=== PATIENT | male | born 1960 | race Two or more races ===

== ENCOUNTER 2022-10-18 03:38 | Inpatient (IN) | payer OTHER, MEDICAID ==
[~2022-10-18] VITALS: Ht 175.3 cm; Wt 57.3 kg
[2022-10-18 04:40] LABS: Basophils # (auto) 0.1 10 ^3/uL (0-0.2); Basophils % (auto) 0.8 % (0.0-2.0); Eosinophils # (auto) 0.8 10 ^3/uL (0-0.8); Hematocrit 47.9 % (41.0-53.0); Hemoglobin 15.8 g/dL (13.5-17.5); Lymphocytes # (auto) 2.5 10 ^3/uL (0.4-5.4); Lymphocytes % (auto) 21.8 % (10.0-50.0); Mean Corpuscular Hemoglobin 28.6 pg (28.0-32.0); Mean Corpuscular Hgb Conc. 32.9 g/dL (32.0-36.0); Monocytes # (auto) 0.7 10 ^3/uL (0-1.3); Monocytes % (auto) 6.4 % (0.0-12.0); Neutrophils # (auto) 7.3 10 ^3/uL (1.6-8.6); Red Blood Cells 5.51 10^6/uL (4.5-5.90); Red Cell Distribution Width 13.6 % (11.8-14.3); White Blood Cell 11.4 10^3/uL (4.4-10.8)
[2022-10-18 04:55] LABS: INR 0.95 (0.9-1.15)
[2022-10-18 05:00] LABS: Albumin 3.2 g/dL (3.4-5.0); Calcium 9.2 mg/dL (8.5-10.1); Magnesium 2.3 mg/dL (1.6-2.6); Potassium 4.1 mmol/L (3.5-5.1)
[2022-10-18 05:02] LABS: BUN/Creatinine Ratio 7.5
[2022-10-18 05:05] LABS: Bilirubin, Total 0.9 mg/dL (0.2-1.0); Total Protein 6.6 g/dL (6.4-8.2)
[2022-10-18] MEDS ORDERED: cefTRIAXone 1GM/50ML D5W 50 ML IV ONE (07:00)
[2022-10-18] MEDS ORDERED: ONDANSETRON HCL 4 MG/2 ML VIAL IV ONE (11:00)
[2022-10-18] MEDS ORDERED: MORPHINE SULFATE INJ 2 MG/ml SYRG IV ONE (11:00)
[2022-10-18 11:23] LABS: Urine WBC None Seen /hpf (0 - 3)
[2022-10-18 11:32] LABS: Urine Bacteria NONE SEEN /hpf (None Seen); Urine Blood Negative /uL (Negative); Urine Specific Gravity 1.005 (1.001-1.035)
[2022-10-18] MEDS ORDERED: MORPHINE SULFATE INJ 2 MG/ml SYRG IV PRN ×2 (12:15)
[2022-10-18] MEDS ORDERED: AZITHROMYCIN 500MG/ 250ML 250 ML IV ONE (12:15)
[2022-10-18] MEDS ORDERED: ALBUTEROL SULF 2.5 MG/0.5ML(0.5%) NEB SOLN NEB PRN ×2 (12:15→13:15)
[2022-10-18] MEDS ORDERED: ACETAMINOPHEN 325 MG TAB PO PRN (12:15)
[2022-10-18] MEDS ORDERED: NITROGLYCERIN 0.4 MG SL TAB SL PRN (12:15)
[2022-10-18] MEDS ORDERED: ATOR40TA52 PO (13:04)
[2022-10-18] MEDS ORDERED: LISI2.5T47 PO (13:04)
[2022-10-18] MEDS: HYDROcodone-ACET 5/325MG TAB PO PRN (17:43)
[2022-10-18 20:38] VITALS: BP 112/72
[2022-10-18] MEDS: ATORVASTATIN 20 MG TAB PO SCH (22:44)
[2022-10-19] MEDS: HYDROcodone-ACET 5/325MG TAB PO PRN ×3 (03:07→17:10)
[2022-10-19 05:39] LABS: Basophils # (auto) 0.1 10 ^3/uL (0-0.2); Basophils % (auto) 0.9 % (0.0-2.0); Eosinophils # (auto) 0.7 10 ^3/uL (0-0.8); Eosinophils % (auto) 8.8 % (0.0-7.0); Hematocrit 46.3 % (41.0-53.0); Hemoglobin 15.3 g/dL (13.5-17.5); Mean Corpuscular Hemoglobin 28.5 pg (28.0-32.0); Mean Corpuscular Hgb Conc. 33.1 g/dL (32.0-36.0); Mean Corpuscular Volume 85.9 fL (80.0-100.0); Monocytes # (auto) 0.8 10 ^3/uL (0-1.3); Monocytes % (auto) 9.4 % (0.0-12.0); Neutrophils # (auto) 4.8 10 ^3/uL (1.6-8.6); Neutrophils % (auto) 56.9 % (37.0-80.0); Red Blood Cells 5.39 10^6/uL (4.5-5.90); Red Cell Distribution Width 13.5 % (11.8-14.3); White Blood Cell 8.4 10^3/uL (4.4-10.8)
[2022-10-19] MEDS: cefTRIAXone 1GM/50ML D5W 50 ML IV SCH (09:34)
[2022-10-19] MEDS: LISINOPRIL 5 MG TAB PO SCH (10:00)
[2022-10-19] MEDS: AZITHROMYCIN 500MG/ 250ML 250 ML IV SCH (10:43)
[2022-10-19 16:29] VITALS: BP 102/68
[2022-10-19 22:00] VITALS: BP 120/76
[2022-10-19] MEDS: ATORVASTATIN 20 MG TAB PO SCH (22:49)
[2022-10-20] VITALS (7 sets, daily range): BP systolic 94–112; BP diastolic 60–69
[2022-10-20] MEDS: HYDROcodone-ACET 5/325MG TAB PO PRN ×3 (02:10→20:17)
[2022-10-20] MEDS: cefTRIAXone 1GM/50ML D5W 50 ML IV SCH (09:37)
[2022-10-20] MEDS: LISINOPRIL 5 MG TAB PO SCH (10:00)
[2022-10-20] MEDS ORDERED: guaiFENesin-DM 100/10mg/5ml SYR PO ONE (10:30)
[2022-10-20] MEDS: AZITHROMYCIN 500MG/ 250ML 250 ML IV SCH (11:17)
[2022-10-20] MEDS ORDERED: methylPREDNISolone SOD SUCC 40 MG/ML VL IV ONE (11:45)
[2022-10-20] MEDS: guaiFENesin-DM 100/10mg/5ml SYR PO PRN (21:47)
[2022-10-20] MEDS: methylPREDNISolone SOD SUCC 40 MG/ML VL IV SCH (21:47)
[2022-10-20] MEDS: ATORVASTATIN 20 MG TAB PO SCH (21:48)
[2022-10-21 05:00] VITALS: BP 97/59
[2022-10-21 06:13] LABS: Basophils # (auto) 0 10 ^3/uL (0-0.2); Basophils % (auto) 0.1 % (0.0-2.0); Eosinophils # (auto) 0 10 ^3/uL (0-0.8); Hemoglobin 15.2 g/dL (13.5-17.5); Lymphocytes # (auto) 1.3 10 ^3/uL (0.4-5.4); Lymphocytes % (auto) 20.9 % (10.0-50.0); Mean Corpuscular Hemoglobin 29.2 pg (28.0-32.0); Mean Corpuscular Hgb Conc. 34.4 g/dL (32.0-36.0); Mean Corpuscular Volume 84.8 fL (80.0-100.0); Monocytes # (auto) 0.1 10 ^3/uL (0-1.3); Neutrophils # (auto) 4.9 10 ^3/uL (1.6-8.6); Nucleated Red Blood Cells % 0.1 %; Red Blood Cells 5.19 10^6/uL (4.5-5.90); Red Cell Distribution Width 13.4 % (11.8-14.3); White Blood Cell 6.3 10^3/uL (4.4-10.8)
[2022-10-21] MEDS: guaiFENesin-DM 100/10mg/5ml SYR PO PRN ×3 (06:18→21:08)
[2022-10-21] MEDS: HYDROcodone-ACET 5/325MG TAB PO PRN ×3 (06:18→21:08)
[2022-10-21 06:25] LABS: Calcium 9.2 mg/dL (8.5-10.1)
[2022-10-21 06:27] LABS: BUN/Creatinine Ratio 13.9
[2022-10-21 09:04] VITALS: BP 100/58
[2022-10-21] MEDS: cefTRIAXone 1GM/50ML D5W 50 ML IV SCH (09:11)
[2022-10-21] MEDS: LISINOPRIL 5 MG TAB PO SCH (10:00)
[2022-10-21] MEDS: AZITHROMYCIN 500MG/ 250ML 250 ML IV SCH (11:44)
[2022-10-21] MEDS: methylPREDNISolone SOD SUCC 40 MG/ML VL IV SCH ×2 (11:45→21:33)
[2022-10-21 12:44] VITALS: BP 100/63
[2022-10-21 17:00] VITALS: BP 97/63
[2022-10-21] MEDS: ATORVASTATIN 20 MG TAB PO SCH (21:33)
[2022-10-21 22:00] VITALS: BP 100/61
[2022-10-22 01:49] VITALS: BP 100/61
[2022-10-22 05:00] VITALS: BP 98/61
[2022-10-22 05:13] LABS: Basophils # (auto) 0.1 10 ^3/uL (0-0.2); Basophils % (auto) 0.5 % (0.0-2.0); Eosinophils # (auto) 0 10 ^3/uL (0-0.8); Hematocrit 43.4 % (41.0-53.0); Hemoglobin 14.6 g/dL (13.5-17.5); Lymphocytes # (auto) 1.5 10 ^3/uL (0.4-5.4); Mean Corpuscular Hemoglobin 28.7 pg (28.0-32.0); Mean Corpuscular Hgb Conc. 33.6 g/dL (32.0-36.0); Mean Corpuscular Volume 85.5 fL (80.0-100.0); Monocytes # (auto) 0.4 10 ^3/uL (0-1.3); Monocytes % (auto) 3.3 % (0.0-12.0); Neutrophils # (auto) 9.6 10 ^3/uL (1.6-8.6); Neutrophils % (auto) 83.2 % (37.0-80.0); Red Blood Cells 5.07 10^6/uL (4.5-5.90); Red Cell Distribution Width 13.2 % (11.8-14.3); White Blood Cell 11.6 10^3/uL (4.4-10.8)
[2022-10-22] MEDS: HYDROcodone-ACET 5/325MG TAB PO PRN ×3 (05:21→14:47)
[2022-10-22 05:26] LABS: Potassium 4.2 mmol/L (3.5-5.1)
[2022-10-22 05:27] LABS: Albumin 2.8 g/dL (3.4-5.0); BUN/Creatinine Ratio 13.3; Calcium 8.8 mg/dL (8.5-10.1)
[2022-10-22 05:30] LABS: Bilirubin, Total 0.4 mg/dL (0.2-1.0); Total Protein 6.7 g/dL (6.4-8.2)
[2022-10-22 08:49] VITALS: BP 105/71
[2022-10-22] MEDS: methylPREDNISolone SOD SUCC 40 MG/ML VL IV SCH (09:02)
[2022-10-22] MEDS: guaiFENesin-DM 100/10mg/5ml SYR PO PRN ×2 (09:02→14:47)
[2022-10-22] MEDS: cefTRIAXone 1GM/50ML D5W 50 ML IV SCH (09:02)
[2022-10-22] MEDS: LISINOPRIL 5 MG TAB PO SCH (09:03)
[2022-10-22] MEDS: AZITHROMYCIN 500MG/ 250ML 250 ML IV SCH (09:03)
[2022-10-22] MEDS ORDERED: LEVO750T64 PO (10:16)
[2022-10-22] MEDS ORDERED: PRED20TA2 PO (10:16)
[2022-10-22 12:50] VITALS: BP 123/57
[2022-10-22 13:11] VITALS: BP 123/57
[2022-10-22 13:45] VITALS: BP 123/57
== END 2022-10-22 15:50 | disposition home or self-care (01) | DRG 193 ==
LOC: ER 03:38 → OVERFLOW 12:14 → WEST WING 10-19 14:34
PROVIDERS: ADMIT Registered Nurse; ATTEND Internal Medicine
DX: J18.1 Lobar pneumonia, unspecified organism (principal); J96.21 Acute and chronic respiratory failure with hypoxia; J44.0 Chronic obstructive pulmonary disease with (acute) lower respiratory infection; J44.1 Chronic obstructive pulmonary disease with (acute) exacerbation; I10 Essential (primary) hypertension; Z20.822 Contact with and (suspected) exposure to COVID-19; Z87.891 Personal history of nicotine dependence; Z85.118 Personal history of other malignant neoplasm of bronchus and lung; R22.2 Localized swelling, mass and lump, trunk
CPT/HCPCS: 36415; 71045; 71275; 80048; 80053; 81001; 83605; 83735; 83880; 84484; 85025; 85610; 85730; 87040; 87426; 87804; 96365; 96375; 99291; G0378; J0696; J2405

== ENCOUNTER 2022-10-29 21:48 | Inpatient (IN) | payer OTHER, MEDICAID ==
[~2022-10-29] VITALS: Ht 167.6 cm; Wt 59.8 kg
[~2022-10-29 21:48] MED LIST: ATOR40TA52 PO; LEVO750T64 PO; LISI2.5T47 PO; PRED20TA2 PO
[2022-10-29] MEDS ORDERED: PIPERACILLIN-TAZOB 3.375GM 100 ML IV ONE (22:15)
[2022-10-29] MEDS ORDERED: VANCOMYCIN 1GM/250ML 250 ML IV ONE (22:15)
[2022-10-29] MEDS ORDERED: DexAMETHasone SOD PHOS 10MG/1ML VIAL INJ IV ONE (22:15)
[2022-10-29] MEDS ORDERED: ALBUTEROL SULF 2.5 MG/0.5ML(0.5%) NEB SOLN HHN ONE (22:15)
[2022-10-29] MEDS ORDERED: IPRATROPIUM BROM 0.5 MG/2.5ML INH SOL HHN ONE (22:15)
[2022-10-30 00:49] VITALS: BP 98/26
[2022-10-30 00:56] LABS: Basophils # (auto) 0.1 10 ^3/uL (0-0.2); Basophils % (auto) 0.4 % (0.0-2.0); Eosinophils # (auto) 0.6 10 ^3/uL (0-0.8); Eosinophils % (auto) 3.9 % (0.0-7.0); Hematocrit 49.1 % (41.0-53.0); Hemoglobin 15.6 g/dL (13.5-17.5); Lymphocytes # (auto) 1.7 10 ^3/uL (0.4-5.4); Lymphocytes % (auto) 10.7 % (10.0-50.0); Mean Corpuscular Hemoglobin 28.1 pg (28.0-32.0); Mean Corpuscular Hgb Conc. 31.8 g/dL (32.0-36.0); Mean Corpuscular Volume 88.5 fL (80.0-100.0); Monocytes # (auto) 0.9 10 ^3/uL (0-1.3); Neutrophils # (auto) 12.3 10 ^3/uL (1.6-8.6); Red Blood Cells 5.54 10^6/uL (4.5-5.90); Red Cell Distribution Width 14.1 % (11.8-14.3); White Blood Cell 15.6 10^3/uL (4.4-10.8)
[2022-10-30] MEDS ORDERED: LORazepam 2MG/ML-1ML VIAL IV ONE (01:00)
[2022-10-30 01:10] LABS: Albumin 2.8 g/dL (3.4-5.0); BUN/Creatinine Ratio 16.7; Calcium 8.9 mg/dL (8.5-10.1); Potassium 4.3 mmol/L (3.5-5.1)
[2022-10-30 01:16] LABS: Bilirubin, Total 1.9 mg/dL (0.2-1.0)
[2022-10-30] MEDS ORDERED: ASPirin 325 MG TAB PO ONE (02:45)
[2022-10-30 02:51] VITALS: BP 100/69
[2022-10-30] MEDS ORDERED: ONDANSETRON HCL 4 MG/2 ML VIAL IV PRN (03:00)
[2022-10-30] MEDS ORDERED: MORPHINE SULFATE INJ 2 MG/ml SYRG IV PRN (03:00)
[2022-10-30] MEDS ORDERED: LORazepam 2MG/ML-1ML VIAL IV PRN (03:00)
[2022-10-30] MEDS ORDERED: VANCOMYCIN PER PHARMACY 0 MG IV SCH (03:00)
[2022-10-30] MEDS ORDERED: NITROGLYCERIN 0.4 MG SL TAB SL PRN (03:00)
[2022-10-30] MEDS ORDERED: IBUPROFEN 600 MG TAB PO PRN (03:00)
[2022-10-30] MEDS ORDERED: DOCUSATE SOD 100 MG CAP PO PRN (03:00)
[2022-10-30] MEDS ORDERED: ALBUMIN 25% 100 ML IV ONE (03:00)
[2022-10-30] MEDS ORDERED: PROMETHAZINE W/CODEINE 5 ML ORAL SYRUP PO ONE (03:30)
[2022-10-30] MEDS: MORPHINE SULFATE INJ 2 MG/ml SYRG IV PRN ×3 (03:40→19:53)
[2022-10-30] MEDS: SODIUM CHLORIDE 0.9% 1,000 ML IV SCH ×3 (04:18→19:54)
[2022-10-30 04:33] LABS: Basophils # (auto) 0 10 ^3/uL (0-0.2); Basophils % (auto) 0.2 % (0.0-2.0); Eosinophils # (auto) 0.1 10 ^3/uL (0-0.8); Eosinophils % (auto) 0.5 % (0.0-7.0); Hematocrit 42.3 % (41.0-53.0); Hemoglobin 13.7 g/dL (13.5-17.5); Lymphocytes # (auto) 0.9 10 ^3/uL (0.4-5.4); Lymphocytes % (auto) 7.7 % (10.0-50.0); Mean Corpuscular Hemoglobin 27.9 pg (28.0-32.0); Mean Corpuscular Hgb Conc. 32.4 g/dL (32.0-36.0); Mean Corpuscular Volume 86.2 fL (80.0-100.0); Monocytes # (auto) 0.1 10 ^3/uL (0-1.3); Monocytes % (auto) 1.1 % (0.0-12.0); Neutrophils # (auto) 10.2 10 ^3/uL (1.6-8.6); Neutrophils % (auto) 90.5 % (37.0-80.0); Red Blood Cells 4.91 10^6/uL (4.5-5.90); Red Cell Distribution Width 13.9 % (11.8-14.3); White Blood Cell 11.2 10^3/uL (4.4-10.8)
[2022-10-30 04:56] LABS: Albumin 3.2 g/dL (3.4-5.0); Potassium 4.7 mmol/L (3.5-5.1)
[2022-10-30 05:03] LABS: BUN/Creatinine Ratio 15.7; Bilirubin, Total 1.9 mg/dL (0.2-1.0); Calcium 8.8 mg/dL (8.5-10.1)
[2022-10-30 07:53] VITALS: BP 102/61
[2022-10-30 09:00] VITALS: BP 101/67
[2022-10-30] MEDS: cefTRIAXone 1GM/50ML D5W 50 ML IV SCH (09:33)
[2022-10-30] MEDS: FAMOTIDINE (10MG/ML) 2ML VL IV SCH ×2 (09:34→23:07)
[2022-10-30] MEDS: methylPREDNISolone SOD SUCC 40 MG/ML VL IV SCH ×2 (09:34→23:07)
[2022-10-30] MEDS: HEPARIN SODIUM (PORCINE) 5000 UNITS/ML 1ML VIAL SC SCH (09:37)
[2022-10-30] MEDS: HYDROcodone-ACET 5/325MG TAB PO PRN ×2 (09:59→18:28)
[2022-10-30] MEDS: ASPirin 81 mg TAB PO SCH (11:12)
[2022-10-30] MEDS: AZITHROMYCIN 500MG/ 250ML 250 ML IV SCH (11:21)
[2022-10-30] MEDS: VANCOMYCIN 1GM/250ML 250 ML IV SCH (14:28)
[2022-10-30] MEDS: ALBUTEROL SULF 2.5 MG/0.5ML(0.5%) NEB SOLN NEB PRN (18:28)
[2022-10-30] MEDS ORDERED: guaiFENesin 200 MG/10 ML UD PO ONE (21:00)
[2022-10-31] MEDS: HYDROcodone-ACET 5/325MG TAB PO PRN ×3 (00:37→22:38)
[2022-10-31] MEDS: HEPARIN SODIUM (PORCINE) 5000 UNITS/ML 1ML VIAL SC SCH ×4 (00:37→22:31)
[2022-10-31] MEDS: VANCOMYCIN 1GM/250ML 250 ML IV SCH ×3 (00:45→19:10)
[2022-10-31] MEDS: ALBUTEROL SULF 2.5 MG/0.5ML(0.5%) NEB SOLN NEB PRN ×2 (03:58→07:08)
[2022-10-31] MEDS: methylPREDNISolone SOD SUCC 40 MG/ML VL IV SCH ×3 (06:19→22:30)
[2022-10-31 07:20] LABS: Basophils # (auto) 0 10 ^3/uL (0-0.2); Basophils % (auto) 0.1 % (0.0-2.0); Eosinophils # (auto) 0 10 ^3/uL (0-0.8); Hematocrit 42.7 % (41.0-53.0); Hemoglobin 14.1 g/dL (13.5-17.5); Lymphocytes % (auto) 5.4 % (10.0-50.0); Mean Corpuscular Hemoglobin 28.3 pg (28.0-32.0); Mean Corpuscular Hgb Conc. 32.9 g/dL (32.0-36.0); Mean Corpuscular Volume 85.8 fL (80.0-100.0); Monocytes # (auto) 0.4 10 ^3/uL (0-1.3); Monocytes % (auto) 2.4 % (0.0-12.0); Neutrophils # (auto) 16.5 10 ^3/uL (1.6-8.6); Neutrophils % (auto) 92.1 % (37.0-80.0); Nucleated Red Blood Cells % 0.1 %; Red Blood Cells 4.98 10^6/uL (4.5-5.90); Red Cell Distribution Width 13.9 % (11.8-14.3)
[2022-10-31 07:28] LABS: Albumin 2.9 g/dL (3.4-5.0); Potassium 4.3 mmol/L (3.5-5.1)
[2022-10-31 07:32] LABS: BUN/Creatinine Ratio 21.4; Bilirubin, Total 0.8 mg/dL (0.2-1.0); Total Protein 6.6 g/dL (6.4-8.2)
[2022-10-31] MEDS: cefTRIAXone 1GM/50ML D5W 50 ML IV SCH (10:59)
[2022-10-31] MEDS: FAMOTIDINE (10MG/ML) 2ML VL IV SCH ×2 (10:59→22:30)
[2022-10-31] MEDS: ASPirin 81 mg TAB PO SCH (10:59)
[2022-10-31] MEDS: AZITHROMYCIN 500MG/ 250ML 250 ML IV SCH (12:09)
[2022-10-31] MEDS: SODIUM CHLORIDE 0.9% 1,000 ML IV SCH (12:18)
[2022-10-31 22:00] VITALS: BP 130/85
[2022-11-01 05:00] VITALS: BP 111/73
[2022-11-01] MEDS: SODIUM CHLORIDE 0.9% 1,000 ML IV SCH ×2 (05:17→21:40)
[2022-11-01 05:46] LABS: Potassium 4.5 mmol/L (3.5-5.1)
[2022-11-01 05:51] LABS: Calcium 9.3 mg/dL (8.5-10.1)
[2022-11-01] MEDS: HYDROcodone-ACET 5/325MG TAB PO PRN ×2 (05:51→18:21)
[2022-11-01] MEDS: methylPREDNISolone SOD SUCC 40 MG/ML VL IV SCH ×3 (06:31→21:45)
[2022-11-01] MEDS: VANCOMYCIN 1GM/250ML 250 ML IV SCH ×2 (06:31→18:12)
[2022-11-01 09:00] VITALS: BP 112/78
[2022-11-01] MEDS: ASPirin 81 mg TAB PO SCH (09:15)
[2022-11-01] MEDS: FAMOTIDINE (10MG/ML) 2ML VL IV SCH ×2 (09:19→21:45)
[2022-11-01] MEDS: cefTRIAXone 1GM/50ML D5W 50 ML IV SCH (09:22)
[2022-11-01] MEDS: AZITHROMYCIN 500MG/ 250ML 250 ML IV SCH (09:22)
[2022-11-01] MEDS: HEPARIN SODIUM (PORCINE) 5000 UNITS/ML 1ML VIAL SC SCH ×2 (09:33→21:46)
[2022-11-01] MEDS ORDERED: guaiFENesin-CODEINE Liq 5 ML UD PO PRN (12:00)
[2022-11-01 17:00] VITALS: BP 109/65
[2022-11-01 22:00] VITALS: BP 98/60
[2022-11-02] MEDS: HYDROcodone-ACET 5/325MG TAB PO PRN ×3 (02:47→14:08)
[2022-11-02 05:00] VITALS: BP 103/66
[2022-11-02] MEDS: VANCOMYCIN 1GM/250ML 250 ML IV SCH (05:40)
[2022-11-02] MEDS: methylPREDNISolone SOD SUCC 40 MG/ML VL IV SCH ×2 (05:40→14:00)
[2022-11-02 09:00] VITALS: BP 119/76
[2022-11-02] MEDS: cefTRIAXone 1GM/50ML D5W 50 ML IV SCH (09:24)
[2022-11-02] MEDS: FAMOTIDINE (10MG/ML) 2ML VL IV SCH (10:42)
[2022-11-02] MEDS: ASPirin 81 mg TAB PO SCH (10:43)
[2022-11-02] MEDS: AZITHROMYCIN 500MG/ 250ML 250 ML IV SCH (10:44)
[2022-11-02 10:48] VITALS: BP 103/66
[2022-11-02] MEDS: HEPARIN SODIUM (PORCINE) 5000 UNITS/ML 1ML VIAL SC SCH (10:50)
[2022-11-02] MEDS ORDERED: AZIT250T8 PO (12:20)
[2022-11-02] MEDS ORDERED: METH4PAK PO (12:20)
[2022-11-02 13:00] VITALS: BP 103/67
[2022-11-02] MEDS: SODIUM CHLORIDE 0.9% 1,000 ML IV SCH (14:33)
== END 2022-11-02 16:20 | disposition home or self-care (01) | DRG 208 ==
LOC: ER 21:48 → TELE 10-30 03:01 → TELE-WESTW 10-31 17:55
PROVIDERS: ADMIT Nurse Practitioner Family; ATTEND Internal Medicine
PROC: 5A09357 Assistance with Respiratory Ventilation, Less than 24 Consecutive Hours, Continuous Positive Airway Pressure (ICD-10-PCS; principal; 2022-10-30)
PROC: 5A1935Z Respiratory Ventilation, Less than 24 Consecutive Hours (ICD-10-PCS; 2022-10-30)
DX: J96.21 Acute and chronic respiratory failure with hypoxia (principal); J15.9 Unspecified bacterial pneumonia; J44.0 Chronic obstructive pulmonary disease with (acute) lower respiratory infection; I24.8 Other forms of acute ischemic heart disease; J98.11 Atelectasis; J44.1 Chronic obstructive pulmonary disease with (acute) exacerbation; R65.10 Systemic inflammatory response syndrome (SIRS) of non-infectious origin without acute organ dysfunction; Z20.822 Contact with and (suspected) exposure to COVID-19; E88.09 Other disorders of plasma-protein metabolism, not elsewhere classified; I10 Essential (primary) hypertension; Z79.899 Other long term (current) drug therapy; Z99.81 Dependence on supplemental oxygen; Z87.891 Personal history of nicotine dependence
CPT/HCPCS: 36415; 36600; 71045; 80053; 80069; 80202; 82805; 83605; 83880; 84484; 85025; 87040; 87426; 87804; 93005; 93306; 94640; 94660; 96365; 96367; 96375; 99291; G0378; J0696; J1100; J2543; J3490

== ENCOUNTER 2022-11-11 04:47 | Inpatient (IN) | payer OTHER, MEDICAID ==
[~2022-11-11] VITALS: Ht 170.2 cm; Wt 54.0 kg
[~2022-11-11 04:47] MED LIST changes: +AZIT250T8 PO; +METH4PAK PO; -PRED20TA2 PO
[2022-11-11] MEDS ORDERED: ALBUTEROL SULF 2.5 MG/0.5ML(0.5%) NEB SOLN NEB ONE (05:15)
[2022-11-11] MEDS ORDERED: IPRATROPIUM BROM 0.5 MG/2.5ML INH SOL NEB ONE (05:15)
[2022-11-11] MEDS ORDERED: methylPREDNISolone SOD SUCC 125 MG/2 ML VL IV ONE (05:15)
[2022-11-11] MEDS ORDERED: AZITHROMYCIN 250 MG TAB PO ONE (06:45)
[2022-11-11 06:55] LABS: Basophils # (auto) 0.1 10 ^3/uL (0-0.2); Basophils % (auto) 0.4 % (0.0-2.0); Eosinophils # (auto) 0.6 10 ^3/uL (0-0.8); Eosinophils % (auto) 3.9 % (0.0-7.0); Hematocrit 49.6 % (41.0-53.0); Hemoglobin 16.1 g/dL (13.5-17.5); Lymphocytes # (auto) 2.9 10 ^3/uL (0.4-5.4); Mean Corpuscular Hemoglobin 28.3 pg (28.0-32.0); Mean Corpuscular Hgb Conc. 32.4 g/dL (32.0-36.0); Mean Corpuscular Volume 87.2 fL (80.0-100.0); Monocytes # (auto) 0.9 10 ^3/uL (0-1.3); Neutrophils # (auto) 11.4 10 ^3/uL (1.6-8.6); Neutrophils % (auto) 71.7 % (37.0-80.0); Nucleated Red Blood Cells % 0.1 %; Red Blood Cells 5.69 10^6/uL (4.5-5.90); Red Cell Distribution Width 14.2 % (11.8-14.3); White Blood Cell 15.9 10^3/uL (4.4-10.8)
[2022-11-11 07:31] LABS: Albumin 2.8 g/dL (3.4-5.0); BUN/Creatinine Ratio 18.3; Calcium 8.4 mg/dL (8.5-10.1); Potassium 3.8 mmol/L (3.5-5.1)
[2022-11-11 07:34] LABS: Bilirubin, Total 1.3 mg/dL (0.2-1.0); Total Protein 5.9 g/dL (6.4-8.2)
[2022-11-11 08:44] LABS: Urine Bacteria NONE SEEN /hpf (None Seen); Urine Blood TRACE /uL (Negative); Urine Specific Gravity 1.008 (1.001-1.035); Urine WBC 1 /hpf (0 - 3)
[2022-11-11 09:11] LABS: INR 0.88 (0.9-1.15); Partial Thromboplastin Time 26.5 sec (24.6-33.4)
[2022-11-11] MEDS ORDERED: NITROGLYCERIN 0.4 MG SL TAB SL PRN (09:15)
[2022-11-11] MEDS ORDERED: ALBUTEROL SULF 2.5 MG/0.5ML(0.5%) NEB SOLN NEB PRN (09:15)
[2022-11-11] MEDS ORDERED: MORPHINE SULFATE INJ 2 MG/ml SYRG IV PRN (09:15)
[2022-11-11] MEDS: levoFLOXacin 500MG 100 ML IV SCH (10:13)
[2022-11-11] MEDS: ENOXAPARIN SOD 80 MG/0.8ML SYRINGE SC SCH ×2 (10:13→21:27)
[2022-11-11] MEDS: IPRATROPIUM BROM 0.5 MG/2.5ML INH SOL NEB PRN ×2 (11:24→19:42)
[2022-11-11] MEDS: HYDROcodone-ACET 5/325MG TAB PO PRN ×2 (12:15→18:48)
[2022-11-11 13:55] VITALS: BP 94/53
[2022-11-11] MEDS: methylPREDNISolone SOD SUCC 125 MG/2 ML VL IV SCH ×2 (14:17→21:27)
[2022-11-11 18:19] VITALS: BP 104/71
[2022-11-11] MEDS: guaiFENesin-CODEINE Liq 5 ML UD PO PRN ×2 (18:53→23:16)
[2022-11-11] MEDS: ALBUTEROL SULF 2.5 MG/0.5ML(0.5%) NEB SOLN NEB PRN (19:42)
[2022-11-11 22:00] VITALS: BP 109/67
[2022-11-12] MEDS: HYDROcodone-ACET 5/325MG TAB PO PRN ×3 (00:56→15:22)
[2022-11-12 05:00] VITALS: BP 100/64
[2022-11-12] MEDS: methylPREDNISolone SOD SUCC 125 MG/2 ML VL IV SCH (05:49)
[2022-11-12 06:42] LABS: Basophils # (auto) 0 10 ^3/uL (0-0.2); Basophils % (auto) 0.2 % (0.0-2.0); Eosinophils # (auto) 0 10 ^3/uL (0-0.8); Hematocrit 42.3 % (41.0-53.0); Hemoglobin 14.1 g/dL (13.5-17.5); Lymphocytes # (auto) 1.4 10 ^3/uL (0.4-5.4); Lymphocytes % (auto) 11.4 % (10.0-50.0); Mean Corpuscular Hemoglobin 28.7 pg (28.0-32.0); Mean Corpuscular Hgb Conc. 33.4 g/dL (32.0-36.0); Mean Corpuscular Volume 85.9 fL (80.0-100.0); Monocytes # (auto) 0.3 10 ^3/uL (0-1.3); Monocytes % (auto) 2.6 % (0.0-12.0); Neutrophils # (auto) 10.2 10 ^3/uL (1.6-8.6); Neutrophils % (auto) 85.8 % (37.0-80.0); Red Blood Cells 4.93 10^6/uL (4.5-5.90); Red Cell Distribution Width 14.3 % (11.8-14.3); White Blood Cell 11.9 10^3/uL (4.4-10.8)
[2022-11-12 06:59] LABS: BUN/Creatinine Ratio 19.2; Calcium 8.6 mg/dL (8.5-10.1); Potassium 4.4 mmol/L (3.5-5.1)
[2022-11-12] MEDS: IPRATROPIUM BROM 0.5 MG/2.5ML INH SOL NEB PRN ×2 (07:46→17:54)
[2022-11-12] MEDS: ALBUTEROL SULF 2.5 MG/0.5ML(0.5%) NEB SOLN NEB PRN ×2 (07:46→17:54)
[2022-11-12 09:22] VITALS: BP 109/71
[2022-11-12] MEDS ORDERED: PANTOPRAZOLE 40 MG/10 ML VIAL INJ IV SCH (10:00)
[2022-11-12] MEDS: LISINOPRIL 5 MG TAB PO SCH (10:00)
[2022-11-12] MEDS: guaiFENesin-CODEINE Liq 5 ML UD PO PRN (10:04)
[2022-11-12] MEDS: ENOXAPARIN SOD 80 MG/0.8ML SYRINGE SC SCH (10:04)
[2022-11-12] MEDS: levoFLOXacin 500MG 100 ML IV SCH (10:05)
[2022-11-12] MEDS ORDERED: PIPERACILLIN-TAZO 4.5GM 100 ML IV ONE (12:15)
[2022-11-12] MEDS ORDERED: predniSONE 20 MG TAB PO SCH (12:37)
[2022-11-12 13:00] VITALS: BP 99/68
[2022-11-12] MEDS: PIPERACILLIN-TAZO 4.5GM 100 ML IV SCH (15:02)
[2022-11-12 16:34] VITALS: BP 115/70
[2022-11-12] MEDS ORDERED: IOHEXOL 350 MG/ML 100ML IJ ONE (17:06)
[2022-11-12 20:00] VITALS: BP 97/63
[2022-11-12 22:00] VITALS: BP 97/63
[2022-11-12] MEDS: ATORVASTATIN 20 MG TAB PO SCH (22:38)
[2022-11-13] MEDS: PIPERACILLIN-TAZO 4.5GM 100 ML IV SCH ×5 (02:40→23:58)
[2022-11-13 05:00] VITALS: BP 98/62
[2022-11-13] MEDS: HYDROcodone-ACET 5/325MG TAB PO PRN ×3 (05:06→21:45)
[2022-11-13 06:02] LABS: Basophils # (auto) 0 10 ^3/uL (0-0.2); Basophils % (auto) 0.1 % (0.0-2.0); Eosinophils # (auto) 0 10 ^3/uL (0-0.8); Hematocrit 38.8 % (41.0-53.0); Hemoglobin 12.8 g/dL (13.5-17.5); Lymphocytes # (auto) 1.8 10 ^3/uL (0.4-5.4); Lymphocytes % (auto) 11.3 % (10.0-50.0); Mean Corpuscular Hemoglobin 28.3 pg (28.0-32.0); Mean Corpuscular Hgb Conc. 32.9 g/dL (32.0-36.0); Mean Corpuscular Volume 86.1 fL (80.0-100.0); Monocytes # (auto) 1.1 10 ^3/uL (0-1.3); Monocytes % (auto) 7.2 % (0.0-12.0); Neutrophils # (auto) 12.7 10 ^3/uL (1.6-8.6); Neutrophils % (auto) 81.4 % (37.0-80.0); Red Blood Cells 4.51 10^6/uL (4.5-5.90); Red Cell Distribution Width 14.2 % (11.8-14.3); White Blood Cell 15.6 10^3/uL (4.4-10.8)
[2022-11-13 06:11] LABS: Albumin 2.4 g/dL (3.4-5.0); BUN/Creatinine Ratio 22.7; Calcium 8.6 mg/dL (8.5-10.1); Potassium 3.7 mmol/L (3.5-5.1)
[2022-11-13 06:14] LABS: Bilirubin, Total 0.6 mg/dL (0.2-1.0); Total Protein 5.6 g/dL (6.4-8.2)
[2022-11-13 09:00] VITALS: BP 102/65
[2022-11-13] MEDS: levoFLOXacin 500MG 100 ML IV SCH (09:52)
[2022-11-13] MEDS: LISINOPRIL 5 MG TAB PO SCH (09:52)
[2022-11-13] MEDS: ENOXAPARIN SOD 80 MG/0.8ML SYRINGE SC SCH (09:53)
[2022-11-13 13:00] VITALS: BP 113/74
[2022-11-13] MEDS: ALBUTEROL SULF 2.5 MG/0.5ML(0.5%) NEB SOLN NEB SCH ×2 (13:25→14:09)
[2022-11-13] MEDS: IPRATROPIUM BROM 0.5 MG/2.5ML INH SOL NEB SCH ×2 (13:26→14:09)
[2022-11-13] MEDS: methylPREDNISolone SOD SUCC 40 MG/ML VL IV SCH ×2 (14:11→21:20)
[2022-11-13 17:00] VITALS: BP 103/70
[2022-11-13] MEDS: ATORVASTATIN 20 MG TAB PO SCH (21:20)
[2022-11-13 22:00] VITALS: BP 98/62
[2022-11-14] MEDS: ALBUTEROL SULF 2.5 MG/0.5ML(0.5%) NEB SOLN NEB SCH ×7 (01:58→22:02)
[2022-11-14] MEDS: IPRATROPIUM BROM 0.5 MG/2.5ML INH SOL NEB SCH ×7 (01:58→22:02)
[2022-11-14 05:00] VITALS: BP 94/61
[2022-11-14] MEDS: methylPREDNISolone SOD SUCC 40 MG/ML VL IV SCH (05:26)
[2022-11-14] MEDS: PIPERACILLIN-TAZO 4.5GM 100 ML IV SCH ×4 (05:26→23:59)
[2022-11-14 06:35] LABS: Basophils # (auto) 0 10 ^3/uL (0-0.2); Basophils % (auto) 0.2 % (0.0-2.0); Eosinophils # (auto) 0 10 ^3/uL (0-0.8); Hematocrit 43.8 % (41.0-53.0); Hemoglobin 13.9 g/dL (13.5-17.5); Lymphocytes # (auto) 1.2 10 ^3/uL (0.4-5.4); Lymphocytes % (auto) 13.1 % (10.0-50.0); Mean Corpuscular Hemoglobin 27.8 pg (28.0-32.0); Mean Corpuscular Hgb Conc. 31.8 g/dL (32.0-36.0); Mean Corpuscular Volume 87.5 fL (80.0-100.0); Monocytes # (auto) 0.5 10 ^3/uL (0-1.3); Monocytes % (auto) 5.4 % (0.0-12.0); Neutrophils # (auto) 7.4 10 ^3/uL (1.6-8.6); Neutrophils % (auto) 81.3 % (37.0-80.0); Red Blood Cells 5.01 10^6/uL (4.5-5.90); Red Cell Distribution Width 14.6 % (11.8-14.3); White Blood Cell 9.1 10^3/uL (4.4-10.8)
[2022-11-14] MEDS: HYDROcodone-ACET 5/325MG TAB PO PRN ×3 (06:36→21:33)
[2022-11-14 06:59] LABS: Potassium 4.1 mmol/L (3.5-5.1)
[2022-11-14 07:03] LABS: Albumin 2.4 g/dL (3.4-5.0); BUN/Creatinine Ratio 20.2; Calcium 8.6 mg/dL (8.5-10.1)
[2022-11-14 07:29] LABS: Bilirubin, Total 0.8 mg/dL (0.2-1.0); Total Protein 5.9 g/dL (6.4-8.2)
[2022-11-14 08:03] VITALS: BP 102/65
[2022-11-14 09:00] VITALS: BP 98/63
[2022-11-14] MEDS: LISINOPRIL 5 MG TAB PO SCH (09:47)
[2022-11-14] MEDS: levoFLOXacin 500MG 100 ML IV SCH (09:57)
[2022-11-14] MEDS: ENOXAPARIN SOD 80 MG/0.8ML SYRINGE SC SCH (09:57)
[2022-11-14 13:00] VITALS: BP 92/62
[2022-11-14 17:00] VITALS: BP 105/64
[2022-11-14] MEDS: ATORVASTATIN 20 MG TAB PO SCH (21:31)
[2022-11-14 22:00] VITALS: BP 98/64
[2022-11-15] MEDS: ALBUTEROL SULF 2.5 MG/0.5ML(0.5%) NEB SOLN NEB SCH ×6 (02:45→22:04)
[2022-11-15] MEDS: IPRATROPIUM BROM 0.5 MG/2.5ML INH SOL NEB SCH ×6 (02:45→22:04)
[2022-11-15 05:00] VITALS: BP 112/79
[2022-11-15] MEDS: PIPERACILLIN-TAZO 4.5GM 100 ML IV SCH ×4 (05:15→22:35)
[2022-11-15 05:57] LABS: Basophils # (auto) 0 10 ^3/uL (0-0.2); Basophils % (auto) 0.2 % (0.0-2.0); Eosinophils # (auto) 0 10 ^3/uL (0-0.8); Eosinophils % (auto) 0.2 % (0.0-7.0); Hemoglobin 13.6 g/dL (13.5-17.5); Lymphocytes # (auto) 2.3 10 ^3/uL (0.4-5.4); Lymphocytes % (auto) 21.6 % (10.0-50.0); Mean Corpuscular Hemoglobin 28.2 pg (28.0-32.0); Mean Corpuscular Hgb Conc. 32.4 g/dL (32.0-36.0); Monocytes % (auto) 9.5 % (0.0-12.0); Neutrophils # (auto) 7.2 10 ^3/uL (1.6-8.6); Neutrophils % (auto) 68.5 % (37.0-80.0); Nucleated Red Blood Cells % 0.1 %; Red Blood Cells 4.83 10^6/uL (4.5-5.90); Red Cell Distribution Width 14.3 % (11.8-14.3); White Blood Cell 10.5 10^3/uL (4.4-10.8)
[2022-11-15 06:16] LABS: Albumin 2.4 g/dL (3.4-5.0); Calcium 8.4 mg/dL (8.5-10.1); Potassium 3.7 mmol/L (3.5-5.1)
[2022-11-15 06:19] LABS: BUN/Creatinine Ratio 15.2; Bilirubin, Total 0.8 mg/dL (0.2-1.0); Total Protein 5.9 g/dL (6.4-8.2)
[2022-11-15 08:04] VITALS: BP 102/65
[2022-11-15 09:00] VITALS: BP 99/64
[2022-11-15] MEDS: predniSONE 20 MG TAB PO SCH (09:14)
[2022-11-15] MEDS: HYDROcodone-ACET 5/325MG TAB PO PRN ×2 (09:14→17:40)
[2022-11-15] MEDS: ENOXAPARIN SOD 80 MG/0.8ML SYRINGE SC SCH (09:14)
[2022-11-15] MEDS: levoFLOXacin 500MG 100 ML IV SCH (09:15)
[2022-11-15] MEDS: LISINOPRIL 5 MG TAB PO SCH (10:00)
[2022-11-15 13:00] VITALS: BP 106/73
[2022-11-15 17:00] VITALS: BP 106/72
[2022-11-15 22:00] VITALS: BP 103/70
[2022-11-15] MEDS: ATORVASTATIN 20 MG TAB PO SCH (22:08)
[2022-11-16] MEDS: IPRATROPIUM BROM 0.5 MG/2.5ML INH SOL NEB SCH ×6 (02:00→22:28)
[2022-11-16] MEDS: ALBUTEROL SULF 2.5 MG/0.5ML(0.5%) NEB SOLN NEB SCH ×6 (02:00→22:28)
[2022-11-16] MEDS: HYDROcodone-ACET 5/325MG TAB PO PRN ×3 (02:18→17:44)
[2022-11-16 05:00] VITALS: BP 99/71
[2022-11-16] MEDS: PIPERACILLIN-TAZO 4.5GM 100 ML IV SCH ×3 (05:31→21:18)
[2022-11-16 06:31] LABS: Albumin 2.6 g/dL (3.4-5.0); Calcium 8.8 mg/dL (8.5-10.1); Potassium 4.6 mmol/L (3.5-5.1)
[2022-11-16 06:33] LABS: BUN/Creatinine Ratio 13.6
[2022-11-16 06:37] LABS: Bilirubin, Total 0.6 mg/dL (0.2-1.0); Total Protein 5.6 g/dL (6.4-8.2)
[2022-11-16 07:22] LABS: Basophils # (auto) 0 10 ^3/uL (0-0.2); Basophils % (auto) 0.2 % (0.0-2.0); Eosinophils # (auto) 0.2 10 ^3/uL (0-0.8); Eosinophils % (auto) 1.9 % (0.0-7.0); Hematocrit 43.7 % (41.0-53.0); Hemoglobin 14.7 g/dL (13.5-17.5); Lymphocytes # (auto) 3.1 10 ^3/uL (0.4-5.4); Lymphocytes % (auto) 30.4 % (10.0-50.0); Mean Corpuscular Hemoglobin 29.2 pg (28.0-32.0); Mean Corpuscular Hgb Conc. 33.6 g/dL (32.0-36.0); Monocytes # (auto) 0.9 10 ^3/uL (0-1.3); Monocytes % (auto) 8.6 % (0.0-12.0); Neutrophils # (auto) 6.1 10 ^3/uL (1.6-8.6); Neutrophils % (auto) 58.9 % (37.0-80.0); Nucleated Red Blood Cells % 0.1 %; Red Blood Cells 5.03 10^6/uL (4.5-5.90); Red Cell Distribution Width 14.5 % (11.8-14.3); White Blood Cell 10.3 10^3/uL (4.4-10.8)
[2022-11-16 09:06] VITALS: BP 112/79
[2022-11-16] MEDS: LISINOPRIL 5 MG TAB PO SCH (10:39)
[2022-11-16] MEDS: predniSONE 20 MG TAB PO SCH (10:39)
[2022-11-16] MEDS: ENOXAPARIN SOD 80 MG/0.8ML SYRINGE SC SCH (10:40)
[2022-11-16 13:00] VITALS: BP 104/70
[2022-11-16 16:55] VITALS: BP 87/51
[2022-11-16] MEDS: ATORVASTATIN 20 MG TAB PO SCH (21:19)
[2022-11-16 22:00] VITALS: BP 96/63
[2022-11-17] MEDS: ALBUTEROL SULF 2.5 MG/0.5ML(0.5%) NEB SOLN NEB SCH ×4 (02:08→13:21)
[2022-11-17] MEDS: IPRATROPIUM BROM 0.5 MG/2.5ML INH SOL NEB SCH ×4 (02:08→13:21)
[2022-11-17 05:00] VITALS: BP 103/59
[2022-11-17] MEDS: PIPERACILLIN-TAZO 4.5GM 100 ML IV SCH (06:03)
[2022-11-17 06:10] LABS: Basophils # (auto) 0 10 ^3/uL (0-0.2); Basophils % (auto) 0.2 % (0.0-2.0); Eosinophils # (auto) 0.4 10 ^3/uL (0-0.8); Eosinophils % (auto) 3.2 % (0.0-7.0); Hematocrit 45.7 % (41.0-53.0); Hemoglobin 14.9 g/dL (13.5-17.5); Lymphocytes % (auto) 23.5 % (10.0-50.0); Mean Corpuscular Hemoglobin 28.2 pg (28.0-32.0); Mean Corpuscular Hgb Conc. 32.6 g/dL (32.0-36.0); Mean Corpuscular Volume 86.5 fL (80.0-100.0); Monocytes # (auto) 0.8 10 ^3/uL (0-1.3); Monocytes % (auto) 6.3 % (0.0-12.0); Neutrophils # (auto) 8.5 10 ^3/uL (1.6-8.6); Neutrophils % (auto) 66.8 % (37.0-80.0); Red Blood Cells 5.28 10^6/uL (4.5-5.90); Red Cell Distribution Width 14.4 % (11.8-14.3); White Blood Cell 12.8 10^3/uL (4.4-10.8)
[2022-11-17] MEDS: HYDROcodone-ACET 5/325MG TAB PO PRN ×2 (06:18→12:40)
[2022-11-17 06:35] LABS: Albumin 2.5 g/dL (3.4-5.0); Calcium 8.8 mg/dL (8.5-10.1); Potassium 3.1 mmol/L (3.5-5.1)
[2022-11-17 06:37] LABS: BUN/Creatinine Ratio 16.5
[2022-11-17 06:40] LABS: Bilirubin, Total 0.6 mg/dL (0.2-1.0); Total Protein 5.9 g/dL (6.4-8.2)
[2022-11-17 09:00] VITALS: BP 96/66
[2022-11-17 09:17] VITALS: BP 103/59
[2022-11-17] MEDS: LISINOPRIL 5 MG TAB PO SCH (09:40)
[2022-11-17] MEDS: ENOXAPARIN SOD 80 MG/0.8ML SYRINGE SC SCH (09:40)
[2022-11-17] MEDS ORDERED: AMOX500T86 PO ×2 (11:03)
[2022-11-17] MEDS ORDERED: ALB5IS NEB ×2 (11:05)
[2022-11-17] MEDS ORDERED: IPRA0.00 IN ×2 (11:06)
[2022-11-17 13:00] VITALS: BP 96/66
== END 2022-11-17 13:00 | disposition home or self-care (01) | DRG 193 ==
LOC: EDBD 04:47 → ER 04:47 → EDUNIT# 04:47 → TELE 09:24 → TELE-EAST 18:49
PROVIDERS: ADMIT Nurse Practitioner Family; ATTEND Internal Medicine Pulmonary Disease
DX: J15.9 Unspecified bacterial pneumonia (principal); J96.21 Acute and chronic respiratory failure with hypoxia; J44.1 Chronic obstructive pulmonary disease with (acute) exacerbation; E44.1 Mild protein-calorie malnutrition; J84.9 Interstitial pulmonary disease, unspecified; Z68.1 Body mass index [BMI] 19.9 or less, adult; J44.0 Chronic obstructive pulmonary disease with (acute) lower respiratory infection; Z20.822 Contact with and (suspected) exposure to COVID-19; E78.5 Hyperlipidemia, unspecified; I10 Essential (primary) hypertension; I27.20 Pulmonary hypertension, unspecified; K21.9 Gastro-esophageal reflux disease without esophagitis; Z99.81 Dependence on supplemental oxygen; Z87.891 Personal history of nicotine dependence; Z85.118 Personal history of other malignant neoplasm of bronchus and lung; Z82.49 Family history of ischemic heart disease and other diseases of the circulatory system
CPT/HCPCS: 36415; 71045; 71275; 80048; 80053; 81001; 83880; 84484; 85025; 85379; 85610; 85730; 87040; 87426; 87804; 93005; 94640; 96365; 96372; 96375; 96376; C9113; G0378; J1956; J2543

== ENCOUNTER 2022-11-17 22:54 | Inpatient (IN) | payer OTHER, MEDICAID ==
[~2022-11-17] VITALS: Ht 167.6 cm; Wt 59.1 kg
[~2022-11-17 22:54] MED LIST changes: +ALB5IS NEB; +AMOX500T86 PO; +IPRA0.00 IN
[2022-11-17 23:25] LABS: Hematocrit 49.2 % (41.0-53.0); Hemoglobin 16.1 g/dL (13.5-17.5); Mean Corpuscular Hemoglobin 28.5 pg (28.0-32.0); Mean Corpuscular Hgb Conc. 32.8 g/dL (32.0-36.0); Mean Corpuscular Volume 86.8 fL (80.0-100.0); Red Blood Cells 5.66 10^6/uL (4.5-5.90); Red Cell Distribution Width 14.5 % (11.8-14.3); White Blood Cell 16.1 10^3/uL (4.4-10.8)
[2022-11-17 23:31] LABS: Basophils % (manual) 0 (0.0-2.0); Blast Cells 0; Metamyelocytes % 0; Myelocytes % 0; Promyelocytes % 0; Reactive Lymphocytes 0
[2022-11-17 23:44] LABS: Albumin 2.8 g/dL (3.4-5.0); BUN/Creatinine Ratio 18.3; Calcium 8.7 mg/dL (8.5-10.1); Potassium 3.8 mmol/L (3.5-5.1)
[2022-11-17 23:46] LABS: Bilirubin, Total 0.8 mg/dL (0.2-1.0)
[2022-11-18 00:12] LABS: Band Neutrophils % (manual) 3; Eosinophils % (manual) 8 (0-7); Lymphocytes % (manual) 22 (10.0-50.0); Monocytes % (manual) 6 (0-12)
[2022-11-18] MEDS ORDERED: MORPHINE SULFATE INJ 2 MG/ml SYRG IV ONE (02:00)
[2022-11-18] MEDS ORDERED: ONDANSETRON HCL 4 MG/2 ML VIAL IV ONE (02:00)
[2022-11-18] MEDS ORDERED: MORPHINE SULFATE INJ 2 MG/ml SYRG IV PRN (02:00)
[2022-11-18] MEDS ORDERED: DOCUSATE SOD 100 MG CAP PO PRN (02:30)
[2022-11-18] MEDS ORDERED: ACETAMINOPHEN 325 MG TAB PO PRN (02:30)
[2022-11-18] MEDS ORDERED: ONDANSETRON HCL 4 MG/2 ML VIAL IV PRN (02:30)
[2022-11-18] MEDS: methylPREDNISolone SOD SUCC 40 MG/ML VL IV SCH ×2 (03:09→21:29)
[2022-11-18] MEDS: SODIUM CHLORIDE 0.9% 1,000 ML IV SCH ×2 (03:09→20:34)
[2022-11-18 06:38] LABS: BUN/Creatinine Ratio 18.1; Basophils # (auto) 0 10 ^3/uL (0-0.2); Basophils % (auto) 0.1 % (0.0-2.0); Calcium 9.2 mg/dL (8.5-10.1); Eosinophils # (auto) 0.4 10 ^3/uL (0-0.8); Eosinophils % (auto) 2.5 % (0.0-7.0); Hematocrit 50.2 % (41.0-53.0); Hemoglobin 16.3 g/dL (13.5-17.5); Lymphocytes # (auto) 1.2 10 ^3/uL (0.4-5.4); Lymphocytes % (auto) 7.9 % (10.0-50.0); Mean Corpuscular Hemoglobin 28.2 pg (28.0-32.0); Mean Corpuscular Hgb Conc. 32.4 g/dL (32.0-36.0); Monocytes # (auto) 0.3 10 ^3/uL (0-1.3); Monocytes % (auto) 1.7 % (0.0-12.0); Neutrophils # (auto) 13.4 10 ^3/uL (1.6-8.6); Neutrophils % (auto) 87.8 % (37.0-80.0); Potassium 4.6 mmol/L (3.5-5.1); Red Blood Cells 5.77 10^6/uL (4.5-5.90); Red Cell Distribution Width 14.8 % (11.8-14.3); White Blood Cell 15.3 10^3/uL (4.4-10.8)
[2022-11-18] MEDS: ALBUTEROL SULF 2.5 MG/0.5ML(0.5%) NEB SOLN NEB SCH ×3 (07:45→18:30)
[2022-11-18] MEDS: IPRATROPIUM BROM 0.5 MG/2.5ML INH SOL NEB SCH ×3 (07:45→18:30)
[2022-11-18] MEDS ORDERED: AZITHROMYCIN 250 MG TAB PO ONE (10:30)
[2022-11-18] MEDS ORDERED: ALBUTEROL SULF 2.5 MG/0.5ML(0.5%) NEB SOLN NEB SCH (12:00)
[2022-11-18] MEDS ORDERED: IPRATROPIUM BROM 0.5 MG/2.5ML INH SOL NEB SCH (12:00)
[2022-11-18 14:56] VITALS: BP 106/63
[2022-11-18 16:31] VITALS: BP 108/74
[2022-11-18 16:35] VITALS: BP 108/74
[2022-11-18 17:00] VITALS: BP 108/74
[2022-11-18] MEDS: MORPHINE SULFATE INJ 2 MG/ml SYRG IV PRN (20:09)
[2022-11-18 22:00] VITALS: BP 104/68
[2022-11-19 05:00] VITALS: BP 96/64
[2022-11-19 05:59] LABS: Calcium 8.7 mg/dL (8.5-10.1); Hemoglobin 15.7 g/dL (13.5-17.5); Mean Corpuscular Hemoglobin 29.9 pg (28.0-32.0); Mean Corpuscular Hgb Conc. 34.9 g/dL (32.0-36.0); Mean Corpuscular Volume 85.7 fL (80.0-100.0); Potassium 4.5 mmol/L (3.5-5.1); Red Blood Cells 5.25 10^6/uL (4.5-5.90); Red Cell Distribution Width 14.8 % (11.8-14.3); White Blood Cell 12.3 10^3/uL (4.4-10.8)
[2022-11-19 06:01] LABS: BUN/Creatinine Ratio 23.5
[2022-11-19 06:56] LABS: Band Neutrophils % (manual) 0; Basophils % (manual) 0 (0.0-2.0); Blast Cells 0; Eosinophils % (manual) 0 (0-7); Metamyelocytes % 0; Myelocytes % 0; Promyelocytes % 0; Reactive Lymphocytes 0
[2022-11-19] MEDS: IPRATROPIUM BROM 0.5 MG/2.5ML INH SOL NEB SCH ×3 (07:46→19:10)
[2022-11-19] MEDS: ALBUTEROL SULF 2.5 MG/0.5ML(0.5%) NEB SOLN NEB SCH ×3 (07:46→19:10)
[2022-11-19 08:58] VITALS: BP 118/73
[2022-11-19] MEDS: methylPREDNISolone SOD SUCC 40 MG/ML VL IV SCH ×2 (08:58→21:04)
[2022-11-19] MEDS: AZITHROMYCIN 250 MG TAB PO SCH (08:58)
[2022-11-19 11:41] LABS: Lymphocytes % (manual) 7 (10.0-50.0); Monocytes % (manual) 3 (0-12)
[2022-11-19] MEDS: SODIUM CHLORIDE 0.9% 1,000 ML IV SCH (11:52)
[2022-11-19] MEDS: MAALOX PLUS or MAALOX 30 ML PO PRN ×2 (11:53→21:00)
[2022-11-19 13:00] VITALS: BP 102/70
[2022-11-19] MEDS ORDERED: LOPERAMIDE HCL 2 MG CAP/TAB PO PRN (13:30)
[2022-11-19] MEDS: cefTRIAXone 1GM/50ML D5W 50 ML IV SCH (14:10)
[2022-11-19 17:00] VITALS: BP 113/72
[2022-11-19] MEDS: guaiFENesin-CODEINE Liq 5 ML UD PO PRN (21:16)
[2022-11-19 22:00] VITALS: BP 105/67
[2022-11-20] MEDS: SODIUM CHLORIDE 0.9% 1,000 ML IV SCH ×2 (04:30→21:27)
[2022-11-20 05:00] VITALS: BP 102/61
[2022-11-20] MEDS: IPRATROPIUM BROM 0.5 MG/2.5ML INH SOL NEB SCH ×2 (07:13→18:29)
[2022-11-20] MEDS: ALBUTEROL SULF 2.5 MG/0.5ML(0.5%) NEB SOLN NEB SCH ×2 (07:13→18:29)
[2022-11-20 09:00] VITALS: BP 103/65
[2022-11-20] MEDS: cefTRIAXone 1GM/50ML D5W 50 ML IV SCH (09:24)
[2022-11-20] MEDS: FLORASTOR (S. BOULARDII) 250 MG CAP PO SCH (09:35)
[2022-11-20] MEDS: methylPREDNISolone SOD SUCC 40 MG/ML VL IV SCH ×2 (09:35→21:41)
[2022-11-20] MEDS: AZITHROMYCIN 250 MG TAB PO SCH (09:35)
[2022-11-20 13:00] VITALS: BP 110/66
[2022-11-20 17:00] VITALS: BP 107/71
[2022-11-20 20:00] VITALS: BP 104/72
[2022-11-20] MEDS: guaiFENesin-CODEINE Liq 5 ML UD PO PRN (20:35)
[2022-11-20] MEDS: MAALOX PLUS or MAALOX 30 ML PO PRN (21:42)
[2022-11-20 22:00] VITALS: BP 104/72
[2022-11-20] MEDS: MORPHINE SULFATE INJ 2 MG/ml SYRG IV PRN (23:17)
[2022-11-21] VITALS (7 sets, daily range): BP systolic 105–118; BP diastolic 60–74
[2022-11-21] MEDS: IPRATROPIUM BROM 0.5 MG/2.5ML INH SOL NEB SCH ×4 (01:14→18:56)
[2022-11-21] MEDS: ALBUTEROL SULF 2.5 MG/0.5ML(0.5%) NEB SOLN NEB SCH ×4 (01:14→18:56)
[2022-11-21] MEDS: FLORASTOR (S. BOULARDII) 250 MG CAP PO SCH (10:31)
[2022-11-21] MEDS: cefTRIAXone 1GM/50ML D5W 50 ML IV SCH (10:31)
[2022-11-21] MEDS: methylPREDNISolone SOD SUCC 40 MG/ML VL IV SCH ×2 (10:31→21:54)
[2022-11-21] MEDS: AZITHROMYCIN 250 MG TAB PO SCH (10:31)
[2022-11-21] MEDS: guaiFENesin-CODEINE Liq 5 ML UD PO PRN ×2 (13:49→21:54)
[2022-11-21] MEDS: SODIUM CHLORIDE 0.9% 1,000 ML IV SCH (14:23)
[2022-11-21] MEDS: MAALOX PLUS or MAALOX 30 ML PO PRN (22:08)
[2022-11-22] VITALS (7 sets, daily range): BP systolic 103–121; BP diastolic 64–73
[2022-11-22] MEDS: SODIUM CHLORIDE 0.9% 1,000 ML IV SCH ×2 (06:15→23:14)
[2022-11-22] MEDS: ALBUTEROL SULF 2.5 MG/0.5ML(0.5%) NEB SOLN NEB SCH ×3 (07:29→19:05)
[2022-11-22] MEDS: IPRATROPIUM BROM 0.5 MG/2.5ML INH SOL NEB SCH ×3 (07:29→19:05)
[2022-11-22] MEDS: FLORASTOR (S. BOULARDII) 250 MG CAP PO SCH (09:00)
[2022-11-22] MEDS: AZITHROMYCIN 250 MG TAB PO SCH (09:00)
[2022-11-22] MEDS: cefTRIAXone 1GM/50ML D5W 50 ML IV SCH (09:01)
[2022-11-22] MEDS: methylPREDNISolone SOD SUCC 40 MG/ML VL IV SCH ×2 (09:01→22:25)
[2022-11-22] MEDS: guaiFENesin-CODEINE Liq 5 ML UD PO PRN ×2 (16:07→22:26)
[2022-11-22] MEDS: MAALOX PLUS or MAALOX 30 ML PO PRN ×2 (16:07→22:25)
[2022-11-22] MEDS ORDERED: PRED20TA2 PO ×2 (16:18)
[2022-11-22] MEDS ORDERED: BUDE1AER4 IN ×2 (16:18)
[2022-11-22] MEDS: Ensure Enlive Strawberry 8oz Bottle PO SCH (18:04)
[2022-11-23 05:00] VITALS: BP 107/73
[2022-11-23] MEDS: ALBUTEROL SULF 2.5 MG/0.5ML(0.5%) NEB SOLN NEB SCH ×2 (06:42→11:31)
[2022-11-23] MEDS: IPRATROPIUM BROM 0.5 MG/2.5ML INH SOL NEB SCH ×2 (06:42→11:31)
[2022-11-23 07:34] LABS: Basophils # (auto) 0 10 ^3/uL (0-0.2); Basophils % (auto) 0.2 % (0.0-2.0); Eosinophils # (auto) 0 10 ^3/uL (0-0.8); Hematocrit 42.4 % (41.0-53.0); Hemoglobin 14.3 g/dL (13.5-17.5); Lymphocytes # (auto) 1.3 10 ^3/uL (0.4-5.4); Mean Corpuscular Hemoglobin 29.4 pg (28.0-32.0); Mean Corpuscular Hgb Conc. 33.8 g/dL (32.0-36.0); Monocytes # (auto) 0.9 10 ^3/uL (0-1.3); Monocytes % (auto) 7.9 % (0.0-12.0); Neutrophils # (auto) 9.4 10 ^3/uL (1.6-8.6); Neutrophils % (auto) 80.9 % (37.0-80.0); Red Blood Cells 4.88 10^6/uL (4.5-5.90); Red Cell Distribution Width 14.6 % (11.8-14.3); White Blood Cell 11.6 10^3/uL (4.4-10.8)
[2022-11-23 07:41] LABS: Calcium 8.7 mg/dL (8.5-10.1)
[2022-11-23 07:53] LABS: BUN/Creatinine Ratio 33.9
[2022-11-23 08:00] VITALS: BP 116/71
[2022-11-23] MEDS: AZITHROMYCIN 250 MG TAB PO SCH (08:31)
[2022-11-23] MEDS: guaiFENesin-CODEINE Liq 5 ML UD PO PRN (08:31)
[2022-11-23] MEDS: methylPREDNISolone SOD SUCC 40 MG/ML VL IV SCH (08:32)
[2022-11-23] MEDS: FLORASTOR (S. BOULARDII) 250 MG CAP PO SCH (08:32)
[2022-11-23] MEDS: Ensure Enlive Strawberry 8oz Bottle PO SCH ×2 (08:35→12:02)
[2022-11-23] MEDS: cefTRIAXone 1GM/50ML D5W 50 ML IV SCH (08:50)
[2022-11-23 09:00] VITALS: BP 116/71
[2022-11-23] MEDS ORDERED: DOXY-332 PO ×2 (11:42)
[2022-11-23 12:38] VITALS: BP 106/53
== END 2022-11-23 15:05 | disposition home health service (06) | DRG 871 ==
LOC: ER 22:54 → TELE 11-18 02:26 → TELE-WESTW 11-18 14:51
PROVIDERS: ADMIT Hospitalist; ATTEND Nurse Practitioner Acute Care
DX: A41.9 Sepsis, unspecified organism (principal); J18.9 Pneumonia, unspecified organism; J96.21 Acute and chronic respiratory failure with hypoxia; J44.1 Chronic obstructive pulmonary disease with (acute) exacerbation; C34.90 Malignant neoplasm of unspecified part of unspecified bronchus or lung; R64 Cachexia; J44.0 Chronic obstructive pulmonary disease with (acute) lower respiratory infection; Z68.1 Body mass index [BMI] 19.9 or less, adult; Z20.822 Contact with and (suspected) exposure to COVID-19; I10 Essential (primary) hypertension; Z79.51 Long term (current) use of inhaled steroids; Z87.891 Personal history of nicotine dependence; Z82.49 Family history of ischemic heart disease and other diseases of the circulatory system
CPT/HCPCS: 36415; 71045; 80048; 80053; 84484; 85007; 85025; 85027; 87081; 87426; 93005; 94640; 96361; 96374; 96375; G0378; J0696; J2405

== ENCOUNTER 2022-11-26 11:04 | Inpatient (IN) | payer OTHER, MEDICAID ==
[~2022-11-26] VITALS: Ht 167.6 cm; Wt 58.6 kg
[~2022-11-26 11:04] MED LIST changes: -AZIT250T8 PO; +BUDE1AER4 IN; +DOXY-332 PO; -LEVO750T64 PO; +PRED20TA2 PO
[2022-11-26] MEDS ORDERED: ALBUTEROL MEDNEB 2.5 mg/3ml NEB ONE (11:45)
[2022-11-26] MEDS ORDERED: methylPREDNISolone SOD SUCC 125 MG/2 ML VL IV ONE (11:45)
[2022-11-26] MEDS ORDERED: IPRATROPIUM BROM 0.5 MG/2.5ML INH SOL NEB ONE (11:45)
[2022-11-26] MEDS ORDERED: ALBUTEROL SULF 2.5 MG/0.5ML(0.5%) NEB SOLN NEB ONE (11:45)
[2022-11-26 12:03] LABS: Hematocrit 50.8 % (41.0-53.0); Hemoglobin 17.2 g/dL (13.5-17.5); Mean Corpuscular Hemoglobin 29.2 pg (28.0-32.0); Mean Corpuscular Hgb Conc. 33.9 g/dL (32.0-36.0); Mean Corpuscular Volume 85.9 fL (80.0-100.0); Red Blood Cells 5.91 10^6/uL (4.5-5.90); Red Cell Distribution Width 15.4 % (11.8-14.3); White Blood Cell 16.6 10^3/uL (4.4-10.8)
[2022-11-26 12:07] LABS: Basophils % (manual) 0 (0.0-2.0); Blast Cells 0; Eosinophils % (manual) 0 (0-7); Metamyelocytes % 0; Myelocytes % 0; Promyelocytes % 0
[2022-11-26 12:13] LABS: Albumin 3.2 g/dL (3.4-5.0); Calcium 9.3 mg/dL (8.5-10.1); Potassium 4.7 mmol/L (3.5-5.1)
[2022-11-26 12:16] LABS: INR 0.91 (0.9-1.15); Partial Thromboplastin Time < 20.0 sec (24.6-33.4)
[2022-11-26 12:17] LABS: BUN/Creatinine Ratio 23.4; Bilirubin, Total 1.1 mg/dL (0.2-1.0); Total Protein 6.5 g/dL (6.4-8.2)
[2022-11-26 12:35] LABS: Band Neutrophils % (manual) 4
[2022-11-26 12:36] LABS: Lymphocytes % (manual) 4 (10.0-50.0); Monocytes % (manual) 7 (0-12); Reactive Lymphocytes 8
[2022-11-26] MEDS ORDERED: AZITHROMYCIN 500MG/ 250ML 250 ML IV ONE (13:45)
[2022-11-26] MEDS ORDERED: cefTRIAXone 1GM/50ML D5W 50 ML IV ONE (13:45)
[2022-11-26] MEDS ORDERED: ONDANSETRON HCL 4 MG/2 ML VIAL IV PRN (14:30)
[2022-11-26] MEDS ORDERED: NITROGLYCERIN 0.4 MG SL TAB SL PRN (14:30)
[2022-11-26] MEDS ORDERED: MORPHINE SULFATE INJ 2 MG/ml SYRG IV PRN (14:30)
[2022-11-26] MEDS: BUDESONIDE (INHALATION) 0.5 MG/2 ML NEB NEB SCH (18:45)
[2022-11-26] MEDS: IPRATROPIUM BROM 0.5 MG/2.5ML INH SOL NEB SCH (18:45)
[2022-11-26] MEDS: ALBUTEROL MEDNEB 2.5 mg/3ml NEB NEB SCH (18:45)
[2022-11-26 21:33] LABS: Urine Bacteria NONE SEEN /hpf (None Seen); Urine Blood Negative /uL (Negative); Urine Specific Gravity 1.005 (1.001-1.035); Urine WBC <1 /hpf (0 - 3)
[2022-11-26] MEDS: methylPREDNISolone SOD SUCC 40 MG/ML VL IV SCH (22:44)
[2022-11-26 23:36] VITALS: BP 114/83
[2022-11-27] MEDS: HYDROcodone-ACET 5/325MG TAB PO PRN ×2 (05:06→21:16)
[2022-11-27] MEDS: BUDESONIDE (INHALATION) 0.5 MG/2 ML NEB NEB SCH ×2 (06:50→23:25)
[2022-11-27] MEDS: ALBUTEROL MEDNEB 2.5 mg/3ml NEB NEB SCH ×3 (06:50→21:51)
[2022-11-27] MEDS: IPRATROPIUM BROM 0.5 MG/2.5ML INH SOL NEB SCH ×3 (06:50→21:51)
[2022-11-27 08:01] LABS: Calcium 9.2 mg/dL (8.5-10.1); Potassium 4.3 mmol/L (3.5-5.1)
[2022-11-27 08:04] LABS: BUN/Creatinine Ratio 25.4
[2022-11-27 08:06] LABS: Hematocrit 49.3 % (41.0-53.0); Hemoglobin 16.8 g/dL (13.5-17.5); Mean Corpuscular Hemoglobin 29.1 pg (28.0-32.0); Mean Corpuscular Hgb Conc. 34.1 g/dL (32.0-36.0); Mean Corpuscular Volume 85.3 fL (80.0-100.0); Red Blood Cells 5.78 10^6/uL (4.5-5.90); White Blood Cell 13.7 10^3/uL (4.4-10.8)
[2022-11-27 08:09] LABS: Basophils % (manual) 0 (0.0-2.0); Blast Cells 0; Eosinophils % (manual) 0 (0-7); Metamyelocytes % 0; Myelocytes % 0; Promyelocytes % 0; Reactive Lymphocytes 0
[2022-11-27] MEDS ORDERED: HYDROcodone-ACET 5/325MG TAB PO ONE (10:00)
[2022-11-27] MEDS: methylPREDNISolone SOD SUCC 40 MG/ML VL IV SCH ×2 (10:16→21:08)
[2022-11-27] MEDS: ALPRAZolam 0.25 MG TAB PO PRN (10:17)
[2022-11-27] MEDS: ATORVASTATIN 20 MG TAB PO SCH (10:17)
[2022-11-27] MEDS: LISINOPRIL 5 MG TAB PO SCH (10:20)
[2022-11-27] MEDS ORDERED: AZITHROMYCIN 500MG/ 250ML 250 ML IV ONE (11:15)
[2022-11-27] MEDS ORDERED: cefTRIAXone 1GM/50ML D5W 50 ML IV ONE (11:15)
[2022-11-27] MEDS ORDERED: IOHEXOL 300 MG/ML 100ML BOTTLE IJ ONE (11:41)
[2022-11-27] MEDS ORDERED: IOHEXOL 350 MG/ML 100ML IJ ONE (11:44)
[2022-11-27 14:48] LABS: Band Neutrophils % (manual) 5; Lymphocytes % (manual) 14 (10.0-50.0); Monocytes % (manual) 7 (0-12)
[2022-11-27 16:00] VITALS: BP 108/66
[2022-11-27 16:18] VITALS: BP 108/66
[2022-11-27 22:09] VITALS: BP 91/63
[2022-11-28] MEDS: HYDROcodone-ACET 5/325MG TAB PO PRN ×2 (03:03→21:51)
[2022-11-28 05:40] VITALS: BP 94/61
[2022-11-28] MEDS: IPRATROPIUM BROM 0.5 MG/2.5ML INH SOL NEB SCH ×5 (07:05→22:28)
[2022-11-28] MEDS: BUDESONIDE (INHALATION) 0.5 MG/2 ML NEB NEB SCH ×3 (07:05→22:00)
[2022-11-28] MEDS: ALBUTEROL MEDNEB 2.5 mg/3ml NEB NEB SCH ×4 (07:05→22:28)
[2022-11-28 08:19] VITALS: BP 97/70
[2022-11-28] MEDS: AZITHROMYCIN 500MG/ 250ML 250 ML IV SCH (09:39)
[2022-11-28] MEDS: cefTRIAXone 1GM/50ML D5W 50 ML IV SCH (09:39)
[2022-11-28] MEDS: methylPREDNISolone SOD SUCC 40 MG/ML VL IV SCH (09:39)
[2022-11-28] MEDS: ATORVASTATIN 20 MG TAB PO SCH (09:40)
[2022-11-28] MEDS: LISINOPRIL 5 MG TAB PO SCH (09:48)
[2022-11-28 12:16] VITALS: BP 93/62
[2022-11-28] MEDS: MORPHINE SULFATE INJ 2 MG/ml SYRG IV PRN (15:45)
[2022-11-28] MEDS: ALPRAZolam 0.25 MG TAB PO PRN (15:45)
[2022-11-28 17:01] VITALS: BP 91/61
[2022-11-28] MEDS: methylPREDNISolone SOD SUCC 125 MG/2 ML VL IV SCH (21:52)
[2022-11-28] MEDS ORDERED: methylPREDNISolone SOD SUCC 40 MG/ML VL IV SCH (22:00)
[2022-11-28] MEDS ORDERED: ALBUTEROL SULF 2.5 MG/0.5ML(0.5%) NEB SOLN NEB PRN (22:00)
[2022-11-28] MEDS ORDERED: FUROSEMIDE 20 MG/2 ML VIAL IV ONE ×2 (22:00)
[2022-11-28 22:48] VITALS: BP 113/79
[2022-11-29] MEDS ORDERED: BUDESONIDE (INHALATION) 0.5 MG/2 ML NEB NEB PRN (02:00)
[2022-11-29 05:10] VITALS: BP 99/68
[2022-11-29] MEDS: IPRATROPIUM BROM 0.5 MG/2.5ML INH SOL NEB SCH ×5 (06:00→22:25)
[2022-11-29] MEDS: ALBUTEROL MEDNEB 2.5 mg/3ml NEB NEB SCH ×5 (06:00→22:25)
[2022-11-29] MEDS ORDERED: ALBUTEROL MEDNEB 2.5 mg/3ml NEB NEB PRN (06:45)
[2022-11-29 08:00] VITALS: BP 101/71
[2022-11-29 09:00] VITALS: BP 101/71
[2022-11-29] MEDS: AZITHROMYCIN 500MG/ 250ML 250 ML IV SCH (10:12)
[2022-11-29] MEDS: methylPREDNISolone SOD SUCC 125 MG/2 ML VL IV SCH ×2 (10:12→21:24)
[2022-11-29] MEDS: cefTRIAXone 1GM/50ML D5W 50 ML IV SCH (10:12)
[2022-11-29] MEDS: ATORVASTATIN 20 MG TAB PO SCH (10:12)
[2022-11-29] MEDS: HYDROcodone-ACET 5/325MG TAB PO PRN ×2 (10:13→21:24)
[2022-11-29] MEDS: LISINOPRIL 5 MG TAB PO SCH (10:13)
[2022-11-29] MEDS: BUDESONIDE (INHALATION) 0.5 MG/2 ML NEB NEB SCH ×2 (10:31→19:07)
[2022-11-29 13:00] VITALS: BP 103/74
[2022-11-29 17:00] VITALS: BP 101/70
[2022-11-29 22:00] VITALS: BP 106/72
[2022-11-30] MEDS: ALPRAZolam 0.25 MG TAB PO PRN ×3 (02:20→23:36)
[2022-11-30 05:00] VITALS: BP 96/69
[2022-11-30] MEDS: BUDESONIDE (INHALATION) 0.5 MG/2 ML NEB NEB SCH ×2 (06:33→23:02)
[2022-11-30] MEDS: IPRATROPIUM BROM 0.5 MG/2.5ML INH SOL NEB SCH ×6 (06:33→23:02)
[2022-11-30] MEDS: ALBUTEROL MEDNEB 2.5 mg/3ml NEB NEB SCH ×6 (06:34→23:02)
[2022-11-30 08:00] VITALS: BP 95/65
[2022-11-30 09:00] VITALS: BP 109/78
[2022-11-30 09:16] LABS: Basophils # (auto) 0 10 ^3/uL (0-0.2); Basophils % (auto) 0.1 % (0.0-2.0); Eosinophils # (auto) 0 10 ^3/uL (0-0.8); Hematocrit 48.7 % (41.0-53.0); Hemoglobin 16.3 g/dL (13.5-17.5); Lymphocytes # (auto) 1.2 10 ^3/uL (0.4-5.4); Lymphocytes % (auto) 9.3 % (10.0-50.0); Mean Corpuscular Hemoglobin 28.7 pg (28.0-32.0); Mean Corpuscular Hgb Conc. 33.4 g/dL (32.0-36.0); Monocytes # (auto) 1.2 10 ^3/uL (0-1.3); Monocytes % (auto) 8.8 % (0.0-12.0); Neutrophils # (auto) 10.9 10 ^3/uL (1.6-8.6); Neutrophils % (auto) 81.8 % (37.0-80.0); Red Blood Cells 5.66 10^6/uL (4.5-5.90); Red Cell Distribution Width 14.9 % (11.8-14.3); White Blood Cell 13.3 10^3/uL (4.4-10.8)
[2022-11-30 11:21] LABS: INR 0.93 (0.9-1.15); Partial Thromboplastin Time 22.8 sec (24.6-33.4)
[2022-11-30] MEDS: methylPREDNISolone SOD SUCC 125 MG/2 ML VL IV SCH ×2 (12:04→21:01)
[2022-11-30] MEDS: cefTRIAXone 1GM/50ML D5W 50 ML IV SCH (12:04)
[2022-11-30] MEDS: ATORVASTATIN 20 MG TAB PO SCH (12:05)
[2022-11-30] MEDS: LISINOPRIL 5 MG TAB PO SCH (12:07)
[2022-11-30] MEDS: AZITHROMYCIN 500MG/ 250ML 250 ML IV SCH (13:37)
[2022-11-30 14:00] VITALS: BP 110/74
[2022-11-30] MEDS: HYDROcodone-ACET 5/325MG TAB PO PRN ×2 (15:02→21:02)
[2022-11-30 16:50] VITALS: BP 95/65
[2022-11-30 22:00] VITALS: BP 111/66
[2022-12-01] MEDS: guaiFENesin-DM 100/10mg/5ml SYR PO PRN (00:56)
[2022-12-01 05:00] VITALS: BP 109/72
[2022-12-01] MEDS: ALBUTEROL MEDNEB 2.5 mg/3ml NEB NEB SCH ×5 (06:18→23:10)
[2022-12-01] MEDS: BUDESONIDE (INHALATION) 0.5 MG/2 ML NEB NEB SCH ×2 (06:18→19:26)
[2022-12-01] MEDS: IPRATROPIUM BROM 0.5 MG/2.5ML INH SOL NEB SCH ×5 (06:18→23:10)
[2022-12-01] MEDS: cefTRIAXone 1GM/50ML D5W 50 ML IV SCH (08:28)
[2022-12-01] MEDS: methylPREDNISolone SOD SUCC 125 MG/2 ML VL IV SCH ×2 (09:08→20:29)
[2022-12-01] MEDS: ATORVASTATIN 20 MG TAB PO SCH (09:09)
[2022-12-01] MEDS: LISINOPRIL 5 MG TAB PO SCH (09:10)
[2022-12-01] MEDS: AZITHROMYCIN 500MG/ 250ML 250 ML IV SCH (09:11)
[2022-12-01 09:30] VITALS: BP 110/69
[2022-12-01] MEDS ORDERED: LIDOCAINE W/ EPINEPHRINE 2% INJ 20ML VIAL ONE (09:58)
[2022-12-01] MEDS ORDERED: BUPIVACAINE 0.25% INJ 50ML VIAL ONE (09:58)
[2022-12-01] MEDS ORDERED: ceFAZolin 1GM VL ONE (10:00)
[2022-12-01] MEDS ORDERED: DexAMETHasone SOD PHOS 10MG/1ML VIAL INJ ONE (10:17)
[2022-12-01] MEDS ORDERED: MIDAZOLAM HCL 2MG/2ML 2ml VIAL (1mg/ml) ONE (10:17)
[2022-12-01] MEDS ORDERED: fentaNYL CITRATE 100 MCG/2 ML VL ONE (10:17)
[2022-12-01] MEDS ORDERED: PROPOFOL 10 MG/ML 20 ML IV ONE (11:00)
[2022-12-01 16:30] VITALS: BP 102/65
[2022-12-01 22:00] VITALS: BP 97/65
[2022-12-02] MEDS: ALBUTEROL MEDNEB 2.5 mg/3ml NEB NEB SCH ×5 (07:53→21:44)
[2022-12-02] MEDS: IPRATROPIUM BROM 0.5 MG/2.5ML INH SOL NEB SCH ×5 (07:53→21:44)
[2022-12-02] MEDS: cefTRIAXone 1GM/50ML D5W 50 ML IV SCH (08:18)
[2022-12-02] MEDS: methylPREDNISolone SOD SUCC 125 MG/2 ML VL IV SCH ×2 (08:19→21:20)
[2022-12-02] MEDS: LISINOPRIL 5 MG TAB PO SCH (08:20)
[2022-12-02] MEDS: HYDROcodone-ACET 5/325MG TAB PO PRN ×2 (08:30→23:15)
[2022-12-02] MEDS: ATORVASTATIN 20 MG TAB PO SCH (08:30)
[2022-12-02] MEDS: AZITHROMYCIN 500MG/ 250ML 250 ML IV SCH (08:33)
[2022-12-02 09:28] VITALS: BP 116/76
[2022-12-02] MEDS: BUDESONIDE (INHALATION) 0.5 MG/2 ML NEB NEB SCH ×2 (10:32→21:44)
[2022-12-02 13:00] VITALS: BP 105/73
[2022-12-02 13:53] VITALS: BP 116/76
[2022-12-02] MEDS ORDERED: ALPRAZolam 0.5 MG TAB PO SCH (14:00)
[2022-12-02 16:40] VITALS: BP 86/64
[2022-12-02] MEDS: SODIUM CHLORIDE 0.9% 1,000 ML IV SCH (16:45)
[2022-12-02] MEDS ORDERED: SODIUM CHLORIDE 0.9% 1,000 ML IV ONE (16:45)
[2022-12-02 19:21] VITALS: BP 97/87
[2022-12-02 22:00] VITALS: BP 93/64
[2022-12-02] MEDS: guaiFENesin-DM 100/10mg/5ml SYR PO PRN (23:14)
[2022-12-03] MEDS: MORPHINE SULFATE INJ 2 MG/ml SYRG IV PRN ×4 (00:05→18:20)
[2022-12-03] MEDS: SODIUM CHLORIDE 0.9% 1,000 ML IV SCH ×3 (02:45→22:45)
[2022-12-03] MEDS: guaiFENesin-DM 100/10mg/5ml SYR PO PRN ×4 (06:54→23:31)
[2022-12-03] MEDS: HYDROcodone-ACET 5/325MG TAB PO PRN ×3 (06:55→23:32)
[2022-12-03] MEDS: ALBUTEROL MEDNEB 2.5 mg/3ml NEB NEB SCH ×5 (07:07→22:38)
[2022-12-03] MEDS: IPRATROPIUM BROM 0.5 MG/2.5ML INH SOL NEB SCH ×5 (07:07→22:38)
[2022-12-03] MEDS: cefTRIAXone 1GM/50ML D5W 50 ML IV SCH (08:42)
[2022-12-03 09:00] VITALS: BP 111/71
[2022-12-03] MEDS: methylPREDNISolone SOD SUCC 125 MG/2 ML VL IV SCH ×2 (09:42→21:05)
[2022-12-03] MEDS: ATORVASTATIN 20 MG TAB PO SCH (09:43)
[2022-12-03] MEDS: AZITHROMYCIN 250 MG TAB PO SCH (09:43)
[2022-12-03] MEDS: LORazepam 2MG/ML-1ML VIAL IV PRN ×2 (09:43→21:03)
[2022-12-03] MEDS: LISINOPRIL 5 MG TAB PO SCH (09:43)
[2022-12-03] MEDS: BUDESONIDE (INHALATION) 0.5 MG/2 ML NEB NEB SCH (11:25)
[2022-12-03 13:00] VITALS: BP 134/88
[2022-12-03] MEDS ORDERED: ALBUTEROL SULF 2.5 MG/0.5ML(0.5%) NEB SOLN ONE (13:43)
[2022-12-03 16:46] VITALS: BP 119/84
[2022-12-03 21:45] VITALS: BP 112/80
[2022-12-03 22:38] LABS: INR 0.97 (0.9-1.15)
[2022-12-03] MEDS ORDERED: FUROSEMIDE 40 MG/4 ML VIAL IV ONE (23:00)
[2022-12-04] MEDS: MORPHINE SULFATE INJ 2 MG/ml SYRG IV PRN ×4 (03:44→23:59)
[2022-12-04] MEDS: guaiFENesin-DM 100/10mg/5ml SYR PO PRN ×2 (03:45→21:00)
[2022-12-04 05:00] VITALS: BP 16/97
[2022-12-04] MEDS: ALBUTEROL MEDNEB 2.5 mg/3ml NEB NEB SCH ×5 (06:00→22:11)
[2022-12-04 09:03] VITALS: BP 117/87
[2022-12-04] MEDS: cefTRIAXone 1GM/50ML D5W 50 ML IV SCH (09:36)
[2022-12-04] MEDS: ATORVASTATIN 20 MG TAB PO SCH (09:36)
[2022-12-04] MEDS: methylPREDNISolone SOD SUCC 125 MG/2 ML VL IV SCH ×3 (09:36→20:59)
[2022-12-04] MEDS: AZITHROMYCIN 250 MG TAB PO SCH (09:37)
[2022-12-04] MEDS: LISINOPRIL 5 MG TAB PO SCH (09:38)
[2022-12-04] MEDS: SODIUM CHLORIDE 0.9% 1,000 ML IV SCH (09:39)
[2022-12-04] MEDS: IPRATROPIUM BROM 0.5 MG/2.5ML INH SOL NEB SCH ×5 (10:57→22:11)
[2022-12-04] MEDS: BUDESONIDE (INHALATION) 0.5 MG/2 ML NEB NEB SCH ×2 (11:00→22:12)
[2022-12-04] MEDS: LORazepam 2MG/ML-1ML VIAL IV PRN ×2 (11:32→20:59)
[2022-12-04] MEDS: HYDROcodone-ACET 5/325MG TAB PO PRN ×2 (13:00→21:00)
[2022-12-04 13:10] VITALS: BP 125/71
[2022-12-04 16:37] VITALS: BP 112/75
[2022-12-04 22:00] VITALS: BP 116/79
[2022-12-05] MEDS: SODIUM CHLORIDE 0.9% 1,000 ML IV SCH ×3 (04:45→14:45)
[2022-12-05 05:00] VITALS: BP 106/68
[2022-12-05] MEDS: MORPHINE SULFATE INJ 2 MG/ml SYRG IV PRN ×3 (06:28→21:12)
[2022-12-05] MEDS: guaiFENesin-DM 100/10mg/5ml SYR PO PRN (06:28)
[2022-12-05] MEDS: IPRATROPIUM BROM 0.5 MG/2.5ML INH SOL NEB SCH ×5 (07:25→21:49)
[2022-12-05] MEDS: BUDESONIDE (INHALATION) 0.5 MG/2 ML NEB NEB SCH ×2 (07:26→21:50)
[2022-12-05] MEDS: ALBUTEROL MEDNEB 2.5 mg/3ml NEB NEB SCH ×5 (07:26→21:49)
[2022-12-05 09:00] VITALS: BP 100/70
[2022-12-05] MEDS: HYDROcodone-ACET 5/325MG TAB PO PRN (09:42)
[2022-12-05] MEDS: methylPREDNISolone SOD SUCC 125 MG/2 ML VL IV SCH (09:42)
[2022-12-05] MEDS: AZITHROMYCIN 250 MG TAB PO SCH (09:42)
[2022-12-05] MEDS: ATORVASTATIN 20 MG TAB PO SCH (09:43)
[2022-12-05] MEDS: cefTRIAXone 1GM/50ML D5W 50 ML IV SCH (09:46)
[2022-12-05] MEDS: LISINOPRIL 5 MG TAB PO SCH (09:49)
[2022-12-05] MEDS: LORazepam 2MG/ML-1ML VIAL IV PRN (10:01)
[2022-12-05 12:00] VITALS: BP 112/78
[2022-12-05 13:00] VITALS: BP 98/71
[2022-12-05 17:00] VITALS: BP 101/73
[2022-12-05] MEDS ORDERED: FUROSEMIDE 40 MG/4 ML VIAL IV ONE (20:15)
[2022-12-05 22:00] VITALS: BP 94/70
[2022-12-06] MEDS: methylPREDNISolone SOD SUCC 125 MG/2 ML VL IV SCH ×3 (00:18→21:31)
[2022-12-06] MEDS: SODIUM CHLORIDE 0.9% 1,000 ML IV SCH ×3 (00:18→20:45)
[2022-12-06] MEDS: HYDROcodone-ACET 5/325MG TAB PO PRN ×3 (00:19→23:44)
[2022-12-06] MEDS: guaiFENesin-DM 100/10mg/5ml SYR PO PRN ×3 (00:20→21:31)
[2022-12-06 05:00] VITALS: BP 97/73
[2022-12-06] MEDS: ALBUTEROL MEDNEB 2.5 mg/3ml NEB NEB SCH ×5 (07:27→21:43)
[2022-12-06] MEDS: IPRATROPIUM BROM 0.5 MG/2.5ML INH SOL NEB SCH ×5 (07:27→21:43)
[2022-12-06] MEDS: BUDESONIDE (INHALATION) 0.5 MG/2 ML NEB NEB SCH ×2 (07:27→18:45)
[2022-12-06] MEDS: cefTRIAXone 1GM/50ML D5W 50 ML IV SCH (07:46)
[2022-12-06] MEDS: ATORVASTATIN 20 MG TAB PO SCH (07:47)
[2022-12-06] MEDS: MORPHINE SULFATE INJ 2 MG/ml SYRG IV PRN ×3 (08:32→21:32)
[2022-12-06] MEDS: LISINOPRIL 5 MG TAB PO SCH (08:32)
[2022-12-06 09:30] VITALS: BP 104/70
[2022-12-06] MEDS: AZITHROMYCIN 250 MG TAB PO SCH (10:50)
[2022-12-06 11:15] LABS: Hematocrit 49.5 % (41.0-53.0); Hemoglobin 17.1 g/dL (13.5-17.5); Mean Corpuscular Hemoglobin 29.8 pg (28.0-32.0); Mean Corpuscular Hgb Conc. 34.5 g/dL (32.0-36.0); Mean Corpuscular Volume 86.4 fL (80.0-100.0); Red Blood Cells 5.73 10^6/uL (4.5-5.90); Red Cell Distribution Width 15.1 % (11.8-14.3); White Blood Cell 11.2 10^3/uL (4.4-10.8)
[2022-12-06 11:28] LABS: Albumin 2.5 g/dL (3.4-5.0); Calcium 8.5 mg/dL (8.5-10.1); Potassium 3.6 mmol/L (3.5-5.1)
[2022-12-06] MEDS ORDERED: FUROSEMIDE 40 MG/4 ML VIAL IV ONE (11:30)
[2022-12-06 11:31] LABS: BUN/Creatinine Ratio 58.2; Bilirubin, Total 0.8 mg/dL (0.2-1.0)
[2022-12-06 11:44] LABS: Band Neutrophils % (manual) 0; Basophils % (manual) 0 (0.0-2.0); Blast Cells 0; Eosinophils % (manual) 0 (0-7); Metamyelocytes % 0; Monocytes % (manual) 0 (0-12); Myelocytes % 0; Promyelocytes % 0; Reactive Lymphocytes 0
[2022-12-06] MEDS: LORazepam 2MG/ML-1ML VIAL IV PRN ×2 (12:00→21:31)
[2022-12-06 15:02] LABS: Lymphocytes % (manual) 3 (10.0-50.0)
[2022-12-06 16:30] VITALS: BP 98/62
[2022-12-06 22:00] VITALS: BP 97/67
[2022-12-07 05:00] VITALS: BP 104/69
[2022-12-07] MEDS: SODIUM CHLORIDE 0.9% 1,000 ML IV SCH ×2 (06:40→17:29)
[2022-12-07] MEDS: ALBUTEROL MEDNEB 2.5 mg/3ml NEB NEB SCH ×5 (07:35→22:14)
[2022-12-07] MEDS: IPRATROPIUM BROM 0.5 MG/2.5ML INH SOL NEB SCH ×5 (07:35→22:14)
[2022-12-07 07:45] VITALS: BP 103/69
[2022-12-07 09:00] VITALS: BP 103/69
[2022-12-07] MEDS: cefTRIAXone 1GM/50ML D5W 50 ML IV SCH (09:28)
[2022-12-07] MEDS: ATORVASTATIN 20 MG TAB PO SCH (09:30)
[2022-12-07] MEDS: methylPREDNISolone SOD SUCC 125 MG/2 ML VL IV SCH ×2 (09:30→21:11)
[2022-12-07] MEDS: AZITHROMYCIN 250 MG TAB PO SCH (09:30)
[2022-12-07] MEDS: LISINOPRIL 5 MG TAB PO SCH (09:35)
[2022-12-07] MEDS: HYDROcodone-ACET 5/325MG TAB PO PRN (10:11)
[2022-12-07] MEDS: guaiFENesin-DM 100/10mg/5ml SYR PO PRN ×2 (10:12→23:29)
[2022-12-07] MEDS: BUDESONIDE (INHALATION) 0.5 MG/2 ML NEB NEB SCH ×2 (10:16→19:20)
[2022-12-07 13:00] VITALS: BP 111/76
[2022-12-07] MEDS: LORazepam 2MG/ML-1ML VIAL IV PRN ×2 (15:11→23:29)
[2022-12-07 17:21] VITALS: BP 116/78
[2022-12-07] MEDS: ACETAMINOPHEN 500 MG TAB PO PRN (21:10)
[2022-12-07 21:30] VITALS: BP 99/70
[2022-12-08] MEDS: SODIUM CHLORIDE 0.9% 1,000 ML IV SCH ×3 (02:45→22:45)
[2022-12-08 04:59] VITALS: BP 93/63
[2022-12-08] MEDS: ACETAMINOPHEN 500 MG TAB PO PRN ×3 (05:32→22:07)
[2022-12-08] MEDS: guaiFENesin-DM 100/10mg/5ml SYR PO PRN ×3 (05:32→22:07)
[2022-12-08] MEDS: IPRATROPIUM BROM 0.5 MG/2.5ML INH SOL NEB SCH ×5 (06:07→22:19)
[2022-12-08] MEDS: BUDESONIDE (INHALATION) 0.5 MG/2 ML NEB NEB SCH ×2 (06:07→19:10)
[2022-12-08] MEDS: ALBUTEROL MEDNEB 2.5 mg/3ml NEB NEB SCH ×5 (06:07→22:19)
[2022-12-08 09:00] VITALS: BP 131/89
[2022-12-08] MEDS: cefTRIAXone 1GM/50ML D5W 50 ML IV SCH (09:45)
[2022-12-08] MEDS: methylPREDNISolone SOD SUCC 125 MG/2 ML VL IV SCH ×2 (09:45→22:08)
[2022-12-08] MEDS: ATORVASTATIN 20 MG TAB PO SCH (09:46)
[2022-12-08] MEDS: AZITHROMYCIN 250 MG TAB PO SCH (09:46)
[2022-12-08] MEDS: LISINOPRIL 5 MG TAB PO SCH (09:46)
[2022-12-08] MEDS: LORazepam 2MG/ML-1ML VIAL IV PRN ×2 (09:47→22:07)
[2022-12-08 13:00] VITALS: BP 115/77
[2022-12-08 17:00] VITALS: BP 105/71
[2022-12-08 22:00] VITALS: BP 101/70
[2022-12-09] MEDS: guaiFENesin-DM 100/10mg/5ml SYR PO PRN ×2 (04:39→20:44)
[2022-12-09 05:00] VITALS: BP 112/77
[2022-12-09] MEDS: ALBUTEROL MEDNEB 2.5 mg/3ml NEB NEB SCH ×5 (06:19→22:12)
[2022-12-09] MEDS: BUDESONIDE (INHALATION) 0.5 MG/2 ML NEB NEB SCH ×2 (06:19→22:22)
[2022-12-09] MEDS: IPRATROPIUM BROM 0.5 MG/2.5ML INH SOL NEB SCH ×5 (06:19→22:12)
[2022-12-09] MEDS: LORazepam 2MG/ML-1ML VIAL IV PRN ×2 (06:33→16:31)
[2022-12-09 08:00] VITALS: BP 115/75
[2022-12-09 08:45] VITALS: BP 115/75
[2022-12-09] MEDS ORDERED: HYDROcodone-ACET 5/325MG TAB PO PRN (09:00)
[2022-12-09] MEDS: SODIUM CHLORIDE 0.9% 1,000 ML IV SCH ×2 (09:32→18:45)
[2022-12-09] MEDS: AZITHROMYCIN 250 MG TAB PO SCH (09:32)
[2022-12-09] MEDS: cefTRIAXone 1GM/50ML D5W 50 ML IV SCH (09:32)
[2022-12-09] MEDS: ATORVASTATIN 20 MG TAB PO SCH (09:32)
[2022-12-09] MEDS: LISINOPRIL 5 MG TAB PO SCH ×2 (09:33→09:40)
[2022-12-09] MEDS: methylPREDNISolone SOD SUCC 40 MG/ML VL IV SCH ×2 (09:33→22:53)
[2022-12-09] MEDS: MORPHINE SULFATE INJ 2 MG/ml SYRG IV PRN ×3 (09:34→20:43)
[2022-12-09 12:25] LABS: Basophils # (auto) 0 10 ^3/uL (0-0.2); Basophils % (auto) 0.1 % (0.0-2.0); Eosinophils # (auto) 0 10 ^3/uL (0-0.8); Lymphocytes # (auto) 0.5 10 ^3/uL (0.4-5.4); Lymphocytes % (auto) 2.4 % (10.0-50.0); Mean Corpuscular Hemoglobin 29.2 pg (28.0-32.0); Monocytes # (auto) 0.8 10 ^3/uL (0-1.3); Neutrophils % (auto) 93.5 % (37.0-80.0); Nucleated Red Blood Cells % 0.1 %; Red Blood Cells 5.12 10^6/uL (4.5-5.90); Red Cell Distribution Width 15.5 % (11.8-14.3); White Blood Cell 20.3 10^3/uL (4.4-10.8)
[2022-12-09 12:32] LABS: INR 0.98 (0.9-1.15)
[2022-12-09 12:56] VITALS: BP 120/86
[2022-12-09] MEDS ORDERED: LIDOCAINE 1% (LOCAL ANESTH.) PF 5ml SDV ID ONE (16:30)
[2022-12-09 16:56] VITALS: BP 122/85
[2022-12-09] MEDS: FUROSEMIDE 20 MG/2 ML VIAL IV SCH (18:03)
[2022-12-09 22:00] VITALS: BP 127/90
[2022-12-09] MEDS: SODIUM CHLOR 0.9% PF (SALINE LOCK) 10ML VIAL/SYR IV SCH (22:00)
[2022-12-10] VITALS (17 sets, daily range): BP systolic 45–143; BP diastolic 31–93
[2022-12-10] MEDS: MORPHINE SULFATE INJ 2 MG/ml SYRG IV PRN ×2 (00:54→09:40)
[2022-12-10] MEDS: LORazepam 2MG/ML-1ML VIAL IV PRN ×2 (02:44→16:16)
[2022-12-10] MEDS: FUROSEMIDE 20 MG/2 ML VIAL IV SCH ×2 (06:12→17:42)
[2022-12-10] MEDS: BUDESONIDE (INHALATION) 0.5 MG/2 ML NEB NEB SCH ×2 (06:17→23:55)
[2022-12-10] MEDS: IPRATROPIUM BROM 0.5 MG/2.5ML INH SOL NEB SCH ×5 (06:17→23:56)
[2022-12-10] MEDS: ALBUTEROL MEDNEB 2.5 mg/3ml NEB NEB SCH ×5 (06:17→23:55)
[2022-12-10 07:52] LABS: Hematocrit 44.3 % (41.0-53.0); Hemoglobin 14.5 g/dL (13.5-17.5); Mean Corpuscular Hemoglobin 28.8 pg (28.0-32.0); Mean Corpuscular Hgb Conc. 32.8 g/dL (32.0-36.0); Mean Corpuscular Volume 87.8 fL (80.0-100.0); Red Blood Cells 5.04 10^6/uL (4.5-5.90); Red Cell Distribution Width 15.5 % (11.8-14.3); White Blood Cell 17.5 10^3/uL (4.4-10.8)
[2022-12-10 08:06] LABS: Albumin 1.8 g/dL (3.4-5.0); Calcium 6.7 mg/dL (8.5-10.1); Potassium 3.2 mmol/L (3.5-5.1)
[2022-12-10 08:08] LABS: Basophils % (manual) 0 (0.0-2.0); Blast Cells 0; Eosinophils % (manual) 0 (0-7); Metamyelocytes % 0; Myelocytes % 0; Promyelocytes % 0; Reactive Lymphocytes 0
[2022-12-10 08:11] LABS: BUN/Creatinine Ratio 88.9; Total Protein 4.5 g/dL (6.4-8.2)
[2022-12-10] MEDS: cefTRIAXone 1GM/50ML D5W 50 ML IV SCH (09:37)
[2022-12-10] MEDS: ATORVASTATIN 20 MG TAB PO SCH (09:38)
[2022-12-10] MEDS: AZITHROMYCIN 250 MG TAB PO SCH (09:38)
[2022-12-10] MEDS: LISINOPRIL 5 MG TAB PO SCH (09:38)
[2022-12-10] MEDS: methylPREDNISolone SOD SUCC 40 MG/ML VL IV SCH ×2 (09:39→22:00)
[2022-12-10] MEDS: SODIUM CHLOR 0.9% PF (SALINE LOCK) 10ML VIAL/SYR IV SCH ×2 (09:40→22:00)
[2022-12-10] MEDS: D5W/SOD CHLO 0.9% 1,000 ML IV SCH (11:47)
[2022-12-10 12:36] LABS: Band Neutrophils % (manual) 7; Lymphocytes % (manual) 3 (10.0-50.0); Monocytes % (manual) 3 (0-12)
[2022-12-10] MEDS ORDERED: SODIUM CHLORIDE 0.9% 500 ML IV ONE (17:45)
[2022-12-10] MEDS ORDERED: SUCCINYLCHOLINE CHLORIDE 20 MG/ML 10ML VIAL IV ONE ×2 (20:38→20:45)
[2022-12-10] MEDS ORDERED: ETOMIDATE (2MG/ML) 20ML VIAL IV ONE ×2 (20:38→20:45)
[2022-12-10] MEDS ORDERED: MIDAZOLAM DRIP 50 mg/50mL 50 ML IV ONE (20:48)
[2022-12-10] MEDS ORDERED: NOREPINEPHRINE 8 MG/250ML KIT 250 ML IV ONE (21:01)
[2022-12-10] MEDS: NOREPINEPHRINE 8 MG/250ML KIT 250 ML IV SCH (21:30)
[2022-12-10] MEDS ORDERED: PHENYLEPHRINE IV 250 ML IV ONE (21:41)
[2022-12-10 21:43] LABS: Basophils # (auto) 0 10 ^3/uL (0-0.2); Basophils % (auto) 0.1 % (0.0-2.0); Eosinophils # (auto) 0 10 ^3/uL (0-0.8); Hematocrit 44.5 % (41.0-53.0); Hemoglobin 14.8 g/dL (13.5-17.5); Lymphocytes # (auto) 0.9 10 ^3/uL (0.4-5.4); Lymphocytes % (auto) 4.8 % (10.0-50.0); Mean Corpuscular Hemoglobin 29.1 pg (28.0-32.0); Mean Corpuscular Hgb Conc. 33.2 g/dL (32.0-36.0); Mean Corpuscular Volume 87.7 fL (80.0-100.0); Monocytes # (auto) 0.8 10 ^3/uL (0-1.3); Monocytes % (auto) 4.3 % (0.0-12.0); Neutrophils # (auto) 17.7 10 ^3/uL (1.6-8.6); Neutrophils % (auto) 90.8 % (37.0-80.0); Nucleated Red Blood Cells % 0.1 %; Red Blood Cells 5.07 10^6/uL (4.5-5.90); Red Cell Distribution Width 15.4 % (11.8-14.3); White Blood Cell 19.5 10^3/uL (4.4-10.8)
[2022-12-10] MEDS: MIDAZOLAM DRIP 50 mg/50mL 50 ML IV SCH (21:45)
[2022-12-10] MEDS: PHENYLEPHRINE IV 250 ML IV SCH (21:45)
[2022-12-10] MEDS: fentaNYL Drip 2500mCg/250mlNS 250 ML IV SCH (21:45)
[2022-12-10 21:59] LABS: Albumin 1.9 g/dL (3.4-5.0); BUN/Creatinine Ratio 58.3; Calcium 7.9 mg/dL (8.5-10.1); Potassium 4.2 mmol/L (3.5-5.1)
[2022-12-10 22:02] LABS: Bilirubin, Total 0.8 mg/dL (0.2-1.0); Total Protein 4.5 g/dL (6.4-8.2)
[2022-12-10] MEDS ORDERED: PROPOFOL 100 ML IV ONE (23:11)
[2022-12-10] MEDS: PROPOFOL 100 ML IV SCH (23:15)
[2022-12-11] VITALS (106 sets, daily range): BP systolic 71–144; BP diastolic 44–94
[2022-12-11 02:56] LABS: Basophils # (auto) 0 10 ^3/uL (0-0.2); Basophils % (auto) 0.1 % (0.0-2.0); Eosinophils # (auto) 0 10 ^3/uL (0-0.8); Hematocrit 48.1 % (41.0-53.0); Hemoglobin 15.4 g/dL (13.5-17.5); Lymphocytes # (auto) 0.8 10 ^3/uL (0.4-5.4); Lymphocytes % (auto) 2.7 % (10.0-50.0); Mean Corpuscular Hemoglobin 28.7 pg (28.0-32.0); Mean Corpuscular Hgb Conc. 32.1 g/dL (32.0-36.0); Mean Corpuscular Volume 89.5 fL (80.0-100.0); Monocytes # (auto) 1.1 10 ^3/uL (0-1.3); Monocytes % (auto) 3.9 % (0.0-12.0); Neutrophils # (auto) 27.2 10 ^3/uL (1.6-8.6); Neutrophils % (auto) 93.3 % (37.0-80.0); Red Blood Cells 5.37 10^6/uL (4.5-5.90); Red Cell Distribution Width 15.6 % (11.8-14.3); White Blood Cell 29.1 10^3/uL (4.4-10.8)
[2022-12-11 03:48] LABS: Albumin 1.9 g/dL (3.4-5.0); BUN/Creatinine Ratio 59.6; Calcium 8.2 mg/dL (8.5-10.1); Magnesium 2.4 mg/dL (1.6-2.6)
[2022-12-11] MEDS ORDERED: PHENYLEPHRINE IV 250 ML IV ONE (03:48)
[2022-12-11 03:51] LABS: Bilirubin, Total 0.4 mg/dL (0.2-1.0); Phosphorus 3.6 mg/dL (2.5-4.90); Total Protein 4.9 g/dL (6.4-8.2)
[2022-12-11] MEDS: PHENYLEPHRINE IV 250 ML IV SCH ×2 (05:05→09:20)
[2022-12-11] MEDS: FUROSEMIDE 20 MG/2 ML VIAL IV SCH ×2 (06:00→17:00)
[2022-12-11] MEDS: ALBUTEROL MEDNEB 2.5 mg/3ml NEB NEB SCH ×5 (06:37→23:03)
[2022-12-11] MEDS: IPRATROPIUM BROM 0.5 MG/2.5ML INH SOL NEB SCH ×5 (06:37→23:03)
[2022-12-11] MEDS: BUDESONIDE (INHALATION) 0.5 MG/2 ML NEB NEB SCH ×2 (06:37→19:41)
[2022-12-11] MEDS: LISINOPRIL 5 MG TAB PO SCH (07:28)
[2022-12-11] MEDS: SODIUM CHLOR 0.9% PF (SALINE LOCK) 10ML VIAL/SYR IV SCH ×2 (08:42→21:00)
[2022-12-11] MEDS: cefTRIAXone 1GM/50ML D5W 50 ML IV SCH (09:19)
[2022-12-11] MEDS: methylPREDNISolone SOD SUCC 40 MG/ML VL IV SCH ×2 (09:19→21:00)
[2022-12-11] MEDS: ATORVASTATIN 20 MG TAB PO SCH (09:20)
[2022-12-11] MEDS: AZITHROMYCIN 250 MG TAB PO SCH (09:20)
[2022-12-11] MEDS: fentaNYL Drip 2500mCg/250mlNS 250 ML IV SCH (09:21)
[2022-12-11] MEDS: PROPOFOL 100 ML IV SCH ×2 (09:21→15:40)
[2022-12-11] MEDS: MIDAZOLAM DRIP 50 mg/50mL 50 ML IV SCH ×2 (09:22→15:40)
[2022-12-11] MEDS: NOREPINEPHRINE 8 MG/250ML KIT 250 ML IV SCH (09:23)
[2022-12-11] MEDS: EPINEPHrine HCL 250 ML IV SCH (11:00)
[2022-12-11] MEDS: NOREPINEPHRINE BITARTRATE 32 MG in SODIUM CHL 0.9% 218 ML IV SCH (11:00)
[2022-12-11] MEDS: VASOPRESSIN 20 UNITS in SODIUM CHL 0.9% 99 ML IV SCH ×2 (11:00→22:07)
[2022-12-11] MEDS: PHENYLEPHRINE INJ 80 MG in SODIUM CHL 0.9% 242 ML IV SCH (11:00)
[2022-12-11] MEDS: D5W/SOD CHLO 0.9% 1,000 ML IV SCH ×2 (12:52)
[2022-12-11] MEDS ORDERED: SODIUM BICARBONATE 8.4 % INJ 50ML VIAL IV ONE (13:45)
[2022-12-12] VITALS (99 sets, daily range): BP systolic 73–141; BP diastolic 25–87
[2022-12-12 02:44] LABS: Hematocrit 41.8 % (41.0-53.0); Hemoglobin 13.4 g/dL (13.5-17.5); Mean Corpuscular Hemoglobin 28.2 pg (28.0-32.0); Mean Corpuscular Hgb Conc. 32.2 g/dL (32.0-36.0); Mean Corpuscular Volume 87.5 fL (80.0-100.0); Red Blood Cells 4.78 10^6/uL (4.5-5.90); Red Cell Distribution Width 15.2 % (11.8-14.3); White Blood Cell 23.3 10^3/uL (4.4-10.8)
[2022-12-12 02:46] LABS: Basophils % (manual) 0 (0.0-2.0); Blast Cells 0; Eosinophils % (manual) 0 (0-7); Metamyelocytes % 0; Myelocytes % 0; Promyelocytes % 0; Reactive Lymphocytes 0
[2022-12-12] MEDS: D5W/SOD CHLO 0.9% 1,000 ML IV SCH ×2 (03:00→16:35)
[2022-12-12 03:13] LABS: BUN/Creatinine Ratio 52.4; Calcium 7.9 mg/dL (8.5-10.1)
[2022-12-12 03:48] LABS: Potassium 2.8 mmol/L (3.5-5.1)
[2022-12-12] MEDS ORDERED: POTASSIUM CHL 20MEQ/100ML 300 ML IV ONE (03:57)
[2022-12-12] MEDS: POTASSIUM CHL 20MEQ/100ML 100 ML IV SCH ×3 (04:00→07:50)
[2022-12-12 04:29] LABS: Band Neutrophils % (manual) 2; Lymphocytes % (manual) 2 (10.0-50.0); Monocytes % (manual) 3 (0-12)
[2022-12-12] MEDS: FUROSEMIDE 20 MG/2 ML VIAL IV SCH ×2 (05:13→17:24)
[2022-12-12] MEDS: IPRATROPIUM BROM 0.5 MG/2.5ML INH SOL NEB SCH ×5 (06:47→21:56)
[2022-12-12] MEDS: BUDESONIDE (INHALATION) 0.5 MG/2 ML NEB NEB SCH ×2 (06:47→17:57)
[2022-12-12] MEDS: ALBUTEROL MEDNEB 2.5 mg/3ml NEB NEB SCH ×5 (06:47→21:56)
[2022-12-12] MEDS: VASOPRESSIN 20 UNITS in SODIUM CHL 0.9% 99 ML IV SCH ×2 (07:16→20:21)
[2022-12-12] MEDS: EPINEPHrine HCL 250 ML IV SCH (07:17)
[2022-12-12] MEDS: LISINOPRIL 5 MG TAB PO SCH (07:17)
[2022-12-12] MEDS: SODIUM CHLOR 0.9% PF (SALINE LOCK) 10ML VIAL/SYR IV SCH ×2 (07:17→21:55)
[2022-12-12] MEDS: AZITHROMYCIN 250 MG TAB PO SCH (08:44)
[2022-12-12] MEDS: cefTRIAXone 1GM/50ML D5W 50 ML IV SCH (08:44)
[2022-12-12] MEDS: NOREPINEPHRINE BITARTRATE 32 MG in SODIUM CHL 0.9% 218 ML IV SCH (08:44)
[2022-12-12] MEDS: ATORVASTATIN 20 MG TAB PO SCH (08:44)
[2022-12-12] MEDS: methylPREDNISolone SOD SUCC 40 MG/ML VL IV SCH ×2 (08:44→21:55)
[2022-12-12] MEDS: MIDAZOLAM DRIP 50 mg/50mL 50 ML IV SCH ×4 (08:48→23:51)
[2022-12-12] MEDS: fentaNYL Drip 2500mCg/250mlNS 250 ML IV SCH ×2 (08:53→20:04)
[2022-12-12] MEDS: PHENYLEPHRINE INJ 80 MG in SODIUM CHL 0.9% 242 ML IV SCH (11:00)
[2022-12-12] MEDS: PROPOFOL 100 ML IV SCH (17:24)
[2022-12-12] MEDS ORDERED: PHENYLEPHRINE IV 250 ML IV ONE (20:10)
[2022-12-12] MEDS ORDERED: PHENYLEPHRINE HCL 10 MG/ML VL ONE (20:10)
[2022-12-12] MEDS ORDERED: VANCOMYCIN PER PHARMACY 0 MG IV SCH (20:30)
[2022-12-12] MEDS ORDERED: VANCOMYCIN 1GM/250ML 250 ML IV ONE (20:45)
[2022-12-13] VITALS (92 sets, daily range): BP systolic 30–160; BP diastolic 12–94
[2022-12-13] MEDS: PHENYLEPHRINE INJ 80 MG in SODIUM CHL 0.9% 242 ML IV SCH ×2 (00:45→10:19)
[2022-12-13] MEDS: PROPOFOL 100 ML IV SCH ×4 (00:46→20:56)
[2022-12-13] MEDS: IPRATROPIUM BROM 0.5 MG/2.5ML INH SOL NEB SCH ×5 (02:14→22:03)
[2022-12-13] MEDS: ALBUTEROL MEDNEB 2.5 mg/3ml NEB NEB SCH ×5 (02:14→22:03)
[2022-12-13] MEDS: MIDAZOLAM DRIP 50 mg/50mL 50 ML IV SCH ×6 (04:30→19:35)
[2022-12-13] MEDS: D5W/SOD CHLO 0.9% 1,000 ML IV SCH (05:49)
[2022-12-13] MEDS: BUDESONIDE (INHALATION) 0.5 MG/2 ML NEB NEB SCH ×2 (05:56→18:23)
[2022-12-13] MEDS: FUROSEMIDE 20 MG/2 ML VIAL IV SCH ×2 (06:05→18:00)
[2022-12-13 07:17] LABS: Potassium 4.5 mmol/L (3.5-5.1)
[2022-12-13 07:19] LABS: Hemoglobin 13.9 g/dL (13.5-17.5); White Blood Cell 24.8 10^3/uL (4.4-10.8)
[2022-12-13] MEDS: fentaNYL Drip 2500mCg/250mlNS 250 ML IV SCH ×2 (07:22→19:39)
[2022-12-13 07:24] LABS: Hematocrit 43.7 % (41.0-53.0); Mean Corpuscular Hemoglobin 28.6 pg (28.0-32.0); Mean Corpuscular Hgb Conc. 31.9 g/dL (32.0-36.0); Mean Corpuscular Volume 89.8 fL (80.0-100.0); Red Blood Cells 4.87 10^6/uL (4.5-5.90); Red Cell Distribution Width 15.4 % (11.8-14.3)
[2022-12-13 07:25] LABS: BUN/Creatinine Ratio 46.6; Calcium 8.1 mg/dL (8.5-10.1)
[2022-12-13 08:04] LABS: Basophils % (manual) 0 (0.0-2.0); Blast Cells 0; Eosinophils % (manual) 0 (0-7); Metamyelocytes % 0; Myelocytes % 0; Promyelocytes % 0; Reactive Lymphocytes 0
[2022-12-13 09:04] LABS: Band Neutrophils % (manual) 9; Lymphocytes % (manual) 1 (10.0-50.0); Monocytes % (manual) 2 (0-12)
[2022-12-13] MEDS: cefTRIAXone 1GM/50ML D5W 50 ML IV SCH (09:43)
[2022-12-13] MEDS: methylPREDNISolone SOD SUCC 40 MG/ML VL IV SCH ×2 (09:44→21:24)
[2022-12-13] MEDS: ATORVASTATIN 20 MG TAB PO SCH (09:45)
[2022-12-13] MEDS: SODIUM CHLOR 0.9% PF (SALINE LOCK) 10ML VIAL/SYR IV SCH ×2 (09:45→21:24)
[2022-12-13] MEDS: AZITHROMYCIN 250 MG TAB PO SCH (09:45)
[2022-12-13] MEDS: LISINOPRIL 5 MG TAB PO SCH (10:00)
[2022-12-13] MEDS: EPINEPHrine HCL 250 ML IV SCH (11:00)
[2022-12-13] MEDS ORDERED: SODIUM BICARBONATE 8.4 % INJ 50ML VIAL IV STA (11:54)
[2022-12-13] MEDS ORDERED: SODIUM BICARBONATE 8.4 % INJ 50ML VIAL IV ONE (13:51)
[2022-12-13] MEDS ORDERED: SODIUM BICARBONATE 50ML VIAL 150 ML in D5W 5% 1,000 ML IV SCH (14:00)
[2022-12-13] MEDS: VASOPRESSIN 20 UNITS in SODIUM CHL 0.9% 99 ML IV SCH ×2 (16:31→18:35)
[2022-12-13] MEDS ORDERED: TPN PER PHARMACY 0 ML IV SCH (17:15)
[2022-12-13] MEDS: InsuLIN REG 1unit/0.01ml Soln (100units/ml) SC SCH ×2 (18:00→23:35)
[2022-12-13] MEDS ORDERED: DEXTROSE (50%) 50ML SYRG IV SCH (18:00)
[2022-12-13] MEDS: ACCU-CHEK COMFORT CURVE STRIP VI SCH ×2 (19:05→23:35)
[2022-12-13] MEDS: NOREPINEPHRINE BITARTRATE 32 MG in SODIUM CHL 0.9% 218 ML IV SCH (19:09)
[2022-12-13] MEDS ORDERED: CLINIMIX PER PHARMACY IV NR (20:00)
== END 2022-12-13 23:32 | DRG 871 ==
LOC: EDBD 11:04 → ER 11:04 → TELE 14:34 → TELE-WESTW 11-27 16:00 → ICU WEST 12-10 20:58
PROVIDERS: ADMIT Nurse Practitioner Acute Care; ATTEND Family Medicine
PROC: 0W9B30Z Drainage of Left Pleural Cavity with Drainage Device, Percutaneous Approach (ICD-10-PCS; 2022-11-30)
PROC: 5A09357 Assistance with Respiratory Ventilation, Less than 24 Consecutive Hours, Continuous Positive Airway Pressure (ICD-10-PCS; 2022-12-02)
PROC: 0W993ZZ Drainage of Right Pleural Cavity, Percutaneous Approach (ICD-10-PCS; 2022-12-04)
PROC: 5A0935A Assistance with Respiratory Ventilation, Less than 24 Consecutive Hours, High Flow/Velocity Cannula (ICD-10-PCS; 2022-12-08)
PROC: 5A09357 Assistance with Respiratory Ventilation, Less than 24 Consecutive Hours, Continuous Positive Airway Pressure (ICD-10-PCS; 2022-12-09)
PROC: 5A1945Z Respiratory Ventilation, 24-96 Consecutive Hours (ICD-10-PCS; principal; 2022-12-10)
PROC: 0BH17EZ Insertion of Endotracheal Airway into Trachea, Via Natural or Artificial Opening (ICD-10-PCS; 2022-12-10)
PROC: 5A09357 Assistance with Respiratory Ventilation, Less than 24 Consecutive Hours, Continuous Positive Airway Pressure (ICD-10-PCS; 2022-12-10)
PROC: 02H633Z Insertion of Infusion Device into Right Atrium, Percutaneous Approach (ICD-10-PCS; 2022-12-11)
PROC: B548ZZA Ultrasonography of Superior Vena Cava, Guidance (ICD-10-PCS; 2022-12-11)
PROC: 03HY32Z Insertion of Monitoring Device into Upper Artery, Percutaneous Approach (ICD-10-PCS; 2022-12-11)
DX: A41.9 Sepsis, unspecified organism (principal); J18.9 Pneumonia, unspecified organism; J96.21 Acute and chronic respiratory failure with hypoxia; R65.21 Severe sepsis with septic shock; E44.0 Moderate protein-calorie malnutrition; J44.1 Chronic obstructive pulmonary disease with (acute) exacerbation; C34.90 Malignant neoplasm of unspecified part of unspecified bronchus or lung; J44.0 Chronic obstructive pulmonary disease with (acute) lower respiratory infection; J90 Pleural effusion, not elsewhere classified; I88.9 Nonspecific lymphadenitis, unspecified; E87.6 Hypokalemia; Z20.822 Contact with and (suspected) exposure to COVID-19; R77.8 Other specified abnormalities of plasma proteins; Z66 Do not resuscitate; I10 Essential (primary) hypertension; Z79.51 Long term (current) use of inhaled steroids; Z80.0 Family history of malignant neoplasm of digestive organs; Z82.49 Family history of ischemic heart disease and other diseases of the circulatory system; Z85.048 Personal history of other malignant neoplasm of rectum, rectosigmoid junction, and anus; Z85.118 Personal history of other malignant neoplasm of bronchus and lung; Z87.891 Personal history of nicotine dependence; Z51.5 Encounter for palliative care; Z68.20 Body mass index [BMI] 20.0-20.9, adult
CPT/HCPCS: 32555; 36415; 36569; 36600; 71045; 71275; 76604; 76942; 80048; 80053; 80202; 81001; 82805; 82962; 83615; 83735; 83880; 83986; 84100; 84484; 85007; 85025; 85027; 85379; 85610; 85730; 86850; 86900; 86901; 87040; 87070; 87077; 87186; 87205; 87426; 87804; 89051; 93005; 94002; 94003; 94640; 94660; 94762; 96365; 96366; 96367; 96375; 99291; G0378; J0330; J0690; J0696; J1100; J1642; J2250; J2405; J2704; J3480; J3490; J7042